=== PATIENT | female | born 1945 | race Hispanic/Latino ===

== ENCOUNTER 2019-05-07 06:30 | Day surgery (SDC) | payer OTHER ==
[2019-05-03 14:52] LABS: Absolute Lymphocytes (CBC) 1.8 K/uL (0.7-4.9); Basophils % 0.7 % (0-1.3); Hematocrit 29.8 % (36.0-45.0); Lymphocytes % 30.7 % (15.3-44.8); MPV 10.3 fL (7.6-11.3); RBC Red Blood Cell Count 4.07 M/uL (3.86-4.86)
[2019-05-03 14:55] LABS: Protime INR 0.99
[2019-05-03 15:00] LABS: Potassium 4.2 mmol/L (3.5-5.1)
--- NOTE | 2019-05-03 15:49 | RAD REPORT ---
EXAM DESCRIPTION: RAD - Chest Pa And Lat (2 Views) - 05/03/2019 3:12 pm CLINICAL HISTORY: carotid angiogram, preop examination COMPARISON: Portable November 20, 2009, two view chest July 2008 TECHNIQUE: Frontal and lateral views of the chest were obtained. FINDINGS: The lungs are clear of a focal mass or consolidation. Diffusely prominent interstitial pat tern is present increased over the prior study. In the absence of acute clinical symptoms this is mos t likely progressive fibrosis. Interstitial edema or infiltrate could be masked. Heart size is normal and central vasculature is within normal limits. No pleural effusion or pneumot horax seen. No acute bony finding noted. No aortic abnormality. IMPRESSION: Diffusely prominent interstitial pattern progressive from prior imaging. In the absence of any acute clinical finding this is most likely progressive fibrosis.
--- OUTSIDE RECORDS SUMMARY | 2019-05-07 06:36 | XMS REPORT | Summary of Care ---
:1945 Author Organization [facility] Address [address] [place] [address] Care Team Providers Name Role Phone Pcp, Patient Does Not Have A Primary Care Provider Reason for Visit Reason Comments Results Encounter Details Date Type Department Care Team Description 04/18/2019 Telephone Pending sale to [facility] Mayra Clark MD Results Clinic [address] [facility] [address] [place] [address] [place], [place] [address] Allergies Active Allergy Reactions Severity Noted Date Comments Cephalexin Rash 01/30/2015 Morphine Nausea and/or Vomiting 06/21/2016 Penicillins Rash 01/30/2015 documented as of this encounter (statuses as of 04/19/2019) Medications Medication Sig Dispensed Refills Start Date End Date Status levothyroxine Take 50 mcg by 0 Active (SYNTHROID) 50 mcg mouth every tablet morning. ASPIRIN LOW DOSE ORAL Take by mouth. 0 Active documented as of this encounter (statuses as of 04/19/2019) Active Problems Problem Noted Date Elbow pain 06/21/2016 Knee pain 06/21/2016 documented as of this encounter (statuses as of 04/19/2019) Social History Tobacco Use Types Packs/Day Years Used Date Never Smoker Smokeless Tobacco: Never Used Alcohol Use Drinks/Week oz/Week Comments Not Asked 0 Standard drinks or equivalent 0.0 Sex Assigned at Date Recorded Not on file Job Start Date Occupation Industry Not on file Not on file Not on file Travel History Travel Start Travel End No recent travel history available. documented as of this encounter Last Filed Vital Signs Not on filedocumented in this encounter Plan of Treatment Health Maintenance Due Date Last Done Comments DTaP,Tdap,and Td Vaccines (1 - Tdap) 07/28/1954 Breast Cancer Screening (MAMMOGRAM) 1983 COLONOSCOPY 07/28/1993 Zoster Recombinant Vaccine (SHINGRIX) (1 of 2) 07/28/1993 Medicare Wellness Visit 07/28/2008 Osteoporosis Screening 07/28/2008 PNEUMOCOCCAL VACCINES 65+ (1 of 2 - PCV13) 07/28/2008 INFLUENZA VACCINE (#1) 2018 documented as of this encounter Results Not on filedocumented in this encounter Insurance Payer Benefit Plan Subscriber ID Effective Phone Address Type / Group Dates MEDICARE MEDICARE PART xxxxxxxxxxx 2008-Prese [phone] Medicare A & B nt [address] [id number] [place] [id number] FOR [id number] 2015-Pre Medicare LIFE sent Supplement documented as of this encounter
--- OUTSIDE RECORDS SUMMARY | 2019-05-07 06:36 | XMS REPORT ---
:1945 Author Organization [facility] Address [address] [place] [address] Dr. Carter. [address] [place] [address] Care Team Providers Name Role Phone Unavailable Unavailable Unavailable Payers Payer Name Policy Type Policy Number Effective Date Expiration Date Problems This patient has no known problems. Allergies, Adverse Reactions, Alerts Allergy Name Allergy Status Severity Reaction(s) Onset Inactive Treating Comments Type Date Date Clinician Penicillins DA Active U 2017-09 00:00:0 0 cephalexin DA Active U 2017-09 00:00:0 0 Medications This patient has no known medications.
--- OUTSIDE RECORDS SUMMARY | 2019-05-07 06:37 | XMS REPORT | Summary of Care ---
:1945 Author Organization [facility] Address [address] [place] [address] Care Team Providers Name Role Phone Pcp, Patient Does Not Have A Primary Care Provider Reason for Referral (Routine) Status Reason Specialty Diagnoses / Referred By Referred To Procedures Contact Contact New Request Sleep Disorder Diagnoses Obstructive sleep apnea Amber, Diagnostic Procedures SLEEP STUDY, ATTENDED Mayra Hawkins MD [address] [place] [address] Dr Carter [address] [place] [address] Reason for Visit Reason Comments Obstructive Sleep Apnea Encounter Details Date Type Department Care Team Description 04/23/2019 Telephone [facility] Mayra Mleendez, Obstructive Sleep Pulmonary Clinic Apnea [address] [place] [address] , [address] [place] [address] Dr Friedman [address] [place] [phone] Allergies Active Allergy Reactions Severity Noted Date Comments Cephalexin Rash 01/30/2015 Morphine Nausea and/or Vomiting 06/21/2016 Penicillins Rash 01/30/2015 documented as of this encounter (statuses as of 04/23/2019) Medications Medication Sig Dispensed Refills Start Date End Date Status levothyroxine Take 50 mcg by 0 Active (SYNTHROID) 50 mcg mouth every tablet morning. ASPIRIN LOW DOSE ORAL Take by mouth. 0 Active documented as of this encounter (statuses as of 04/23/2019) Active Problems Problem Noted Date Elbow pain 06/21/2016 Knee pain 06/21/2016 documented as of this encounter (statuses as of 04/23/2019) Social History Tobacco Use Types Packs/Day Years [...] filedocumented in this encounter Plan of Treatment Name Type Priority Associated Diagnoses Order Schedule SLEEP STUDY, ATTENDED PROCEDURES Routine Obstructive sleep apnea Ordered: 04/23/2019 Health Maintenance Due Date Last Done Comments DTaP,Tdap,and Td Vaccines (1 - Tdap) 07/28/1954 Breast Cancer Screening (MAMMOGRAM) 1983 COLONOSCOPY 07/28/1993 Zoster Recombinant Vaccine (SHINGRIX) (1 of 2) 07/28/1993 Medicare Wellness Visit 07/28/2008 Osteoporosis Screening 07/28/2008 PNEUMOCOCCAL VACCINES 65+ (1 of 2 - PCV13) 07/28/2008 INFLUENZA VACCINE (#1) 2018 documented as of this encounter Results Not on filedocumented in this encounter Visit Diagnoses Diagnosis Obstructive sleep apnea - Primary Obstructive sleep apnea (adult) (pediatric) documented in this encounter Insurance Payer Benefit Plan Subscriber ID Effective Phone Address Type / Group Dates MEDICARE MEDICARE PART xxxxxxxxxxx 2008-Jaz [phone] [address] Medicare A & B nt 82 [id number] [place] [id number] FOR [id number] 2015-Pre Medicare LIFE sent Supplement documented as of this encounter
--- OUTSIDE RECORDS SUMMARY | 2019-05-07 06:37 | XMS REPORT | Summary of Care ---
:1945 Author Organization [facility] Address [address] [place] [address] Care Team Providers Name Role Phone Pcp, Patient Does Not Have A Primary Care Provider Reason for Visit Reason Comments APNEA (Routine) Status Reason Specialty Diagnoses / Referred By Referred To Procedures Contact Contact Closed Sleep Disorder Diagnoses Obstructive sleep apnea Mayra Clark Diagnostic Procedures SLEEP STUDY, ATTENDED MD Ross [address] [place] [address] Dr Carter [address] [place] [address] Encounter Details Date Type Department Care Team Description 05/03/2019 Associate Civil Engineer [address] [facility] Sleep Mayra Clark MD [address] [place] [address] Dr Carter [address] [place] [address] Apnea Disorder Center- , [facility] Sleep Lab Bed [address] [place] [phone] Allergies Active Allergy Reactions Severity Noted Date Comments Cephalexin Rash 01/30/2015 Morphine Nausea and/or Vomiting 06/21/2016 Penicillins Rash 01/30/2015 documented as of this encounter (statuses as of 05/03/2019) Medications Medication Sig Dispensed Refills Start Date End Date Status levothyroxine Take 50 mcg by 0 Active (SYNTHROID) 50 mcg mouth every tablet morning. ASPIRIN LOW DOSE ORAL Take by mouth. 0 Active documented as of this encounter (statuses as of 05/03/2019) Active Problems Problem Noted Date Elbow pain 06/21/2016 Knee pain 06/21/2016 documented as of this encounter (statuses as of 05/03/2019) Social History Tobacco Use Types Packs/Day Years [...] filedocumented in this encounter Visit Diagnoses Diagnosis Apnea documented in this encounter Insurance Payer Benefit Plan Subscriber ID Effective Phone Address Type / Group Dates MEDICARE MEDICARE PART xxxxxxxxxxx 2008-Prese [phone] Medicare A & B nt 82 [id number] [place] [phone] FOR [id number] 2015-Pre Medicare LIFE sent Supplement documented as of this encounter
--- OUTSIDE RECORDS SUMMARY | 2019-05-07 06:37 | XMS REPORT | Summary of Care ---
:1945 Author Organization [facility] Address [address] [place] [address] Care Team Providers Name Role Phone Pcp, Patient Does Not Have A Primary Care Provider Reason for Visit Reason Comments Results Encounter Details Date Type Department Care Team Description 04/18/2019 Telephone [facility] Pulmonary Mayra Clark MD Results Clinic [address] [facility] [address] [place] [address] [place], [place] [address] Allergies Active Allergy Reactions Severity Noted Date [...] BOX Medicare A & B nt 82 [id number] [place] [phone] FOR [id number] 2015-Pre Medicare LIFE sent Supplement documented as of this encounter
--- OUTSIDE RECORDS SUMMARY | 2019-05-07 06:37 | XMS REPORT | Summary of Care ---
:1945 Author Organization [facility] Address [address] [place] [address] Care Team Providers Name Role Phone Pcp, Patient Does Not Have A Primary Care Provider Encounter Details Date Type Department Care Team Description 05/03/2019 Orders Only [facility] Doctor Unassigned, No [address] [facility] [place] [address] [address] [place] [address] Allergies Active Allergy Reactions Severity Noted Date Comments Cephalexin Rash 01/30/2015 Morphine Nausea and/or Vomiting 06/21/2016 Penicillins Rash 01/30/2015 documented as of this encounter (statuses as of 05/06/2019) Medications Medication Sig Dispensed Refills Start Date End Date Status levothyroxine Take 50 mcg by 0 Active (SYNTHROID) 50 mcg mouth every tablet morning. ASPIRIN LOW DOSE ORAL Take by mouth. 0 Active documented as of this encounter (statuses as of 05/06/2019) Active Problems Problem Noted Date Elbow pain 06/21/2016 Knee pain 06/21/2016 documented as of this encounter (statuses as of 05/06/2019) Social History Tobacco Use Types Packs/Day Years [...] (#1) 2018 documented as of this encounter Procedures Procedure Name Priority Date/Time Associated Diagnosis Comments SLEEP STUDY DATA REPORT Routine 05/03/2019 12:01 AM CDT documented in this encounter Results Not on filedocumented in this encounter Insurance Payer Benefit Plan Subscriber ID Effective Phone Address Type / Group Dates MEDICARE MEDICARE PART xxxxxxxxxxx 2008-Prese [phone] [address] Medicare A & B nt 82 [id number] [place] [phone] FOR [id number] 2015-Pre Medicare LIFE sent Supplement documented as of this encounter
[2019-05-07] MEDS ORDERED: HEPA 1000U/500MLS 1,000 UNIT/500 ML BAG IV ONE (06:41)
[2019-05-07] MEDS ORDERED: LIDOCAINE 1% 20 ML MDV ONE (06:41)
[2019-05-07] MEDS ORDERED: NA CHLORIDE 0.9% 500 ML ONE (06:56)
[2019-05-07] MEDS ORDERED: MIDAZOLAM HCL 2 MG/2 ML INJ ONE ×2 (07:29→07:44)
[2019-05-07] MEDS ORDERED: FENTANYL CITR 100 MCG/2 ML ONE (07:30)
[2019-05-07] MEDS ORDERED: ATROPINE SULF 1 MG/10 ML SYR IV ONE (07:30)
[2019-05-07 10:54] VITALS: BP 136/57; O2SAT 100
[2019-05-07 11:00] VITALS: TEMP 97.6
--- NOTE | 2019-05-07 13:54 | OP ---
Date of Procedure: 05/07/2019 Surgeon: Terrence Epps MD Fiscal Accounting Clerk: Jonathon Judd. The patient will be at bed rest for about 2 hours and then go home and she will see me in the office in about 2 weeks. Procedure: Selective bilateral carotid angiogram. History Of Present Illness: Ms. Beaver is a 73-year-old white woman. She has been followed by Dr. Umberto sequeira for carotid stenosis. This seemed to have gotten worse. She was asked to have an arterial carot id Doppler which was significantly abnormal and was scheduled for an outpatient carotid angiogram tod ay 05/07/2019. Description Of Procedure: She was brought to the tin can laborer and prepped and draped in the routine ster ile fashion. She was given Versed and fentanyl for sedation. Right common femoral artery access obt ained with a 6-Hebrew sheath. Angiography there was normal. Angio-Seal was used to close the case. A Uriel catheter, JR4, was used to selectively cannulate the right carotid, common, and the left c ommon carotid artery. Selective injection of the carotid angiogram revealed normal external carotid artery bilaterally, normal common carotid artery bilaterally. She had about 20% to 30% stenosis in t he right internal carotid artery. She had the same stenosis about 30% in the left internal carotid a rtery. Complications were none. Anesthesia: Total conscious sedation was 30 minutes. Estimated Blood Loss: 5 cc. Final Diagnosis: Moderate cerebrovascular disease. Plan: To continue medical therapy. Probably do another carotid Doppler in about a year. DILLON/JENNIFER Voice ID: [id number] Report ID: [id number]
== END 2019-05-07 09:51 | disposition home or self-care (01) ==
LOC: CCL 06:30
DX: I65.23 Occlusion and stenosis of bilateral carotid arteries (principal); E78.2 Mixed hyperlipidemia; Z79.82 Long term (current) use of aspirin; Z88.0 Allergy status to penicillin; Z88.1 Allergy status to other antibiotic agents; Z88.6 Allergy status to analgesic agent
CPT/HCPCS: 85025; 80048; 36415; 85610; 85730; 71046; 36222; C1893; C1760; J2250 ×2; J3010; J7040

== ENCOUNTER 2021-09-08 06:30 | Day surgery (SDC) | payer OTHER ==
--- NOTE | 2021-09-07 14:20 | RAD REPORT ---
EXAM DESCRIPTION: RAD - Chest Pa And Lat (2 Views) - 09/07/2021 2:01 pm CLINICAL HISTORY: pre procedure screening COMPARISON: Two view chest 03/26/2021 TECHNIQUE: Frontal and lateral views of the chest were obtained. FINDINGS: The lungs are fibrotic as a baseline. No superimposed failure, infiltrate or mass hilar re gions are stable. Heart size is normal and central vasculature is within normal limits. No pleural effusion or pneumothorax seen. No acute bony finding noted. No aortic abnormality. IMPRESSION: Chronic interstitial fibrotic change matching the March study. No acute finding.
[2021-09-07 14:22] LABS: Hematocrit 34.9 % (36.0-45.0); Lymphocytes % 26.7 % (15.3-44.8); MCV 85.2 fL (80-100); MPV 9.8 fL (7.6-11.3); RBC Red Blood Cell Count 4.09 M/uL (3.86-4.86)
[2021-09-07 14:23] LABS: Protime INR 2.68
[2021-09-07 14:34] LABS: Potassium 4.1 mmol/L (3.5-5.1)
[2021-09-07 14:38] LABS: SARS-CoV-2 Antigen Rapid Res Negative (Negative)
[2021-09-08] MEDS ORDERED: FENTANYL CITR 100 MCG/2 ML ONE (06:45)
[2021-09-08] MEDS ORDERED: MIDAZOLAM HCL 10 ML ONE (06:46)
[2021-09-08] MEDS ORDERED: METOPROLOL TARTRATE 5 MG/5 ML INJ IV ONE (06:46)
[2021-09-08] MEDS ORDERED: MIDAZOLAM HCL 2 MG/2 ML INJ ONE (06:46)
[2021-09-08] MEDS ORDERED: ATROPINE SULF 1 MG/10 ML SYR IV ONE (06:47)
[2021-09-08] MEDS ORDERED: NA CHLORIDE 0.9% 500 ML ONE (06:48)
[2021-09-08 08:52] VITALS: BP 104/53; O2SAT 100
--- NOTE | 2021-09-08 08:57 | OP ---
Surgeon: Terrence Epps MD Analytical Tech: Ms. Amanda Luz. The patient will resume her amiodarone and Xarelto and if she was back into atrial fibrillation, we w ill consider ablation then. Ms. Beaver was admitted to my service today, 09/08/2021 for direct current cardioversion. Indication: Atrial fibrillation that had failed amiodarone. The patient had been on anticoagulant. Echocardiogram was unremarkable. Was having symptoms with her atrial fibrillation. Procedure In Detail: In the medical laboratory manager, she received 7 mg of IV push of Versed for total sedation, 1 s hock of 200 joules, and she converted to sinus bradycardia. There were no complications. No blood l oss. Postoperative Diagnosis: Successful direct current cardioversion from atrial fibrillation to sinus b radycardia. We will continue amiodarone and Xarelto. She can go home whenever she wakes up. I will see her in t he office in 2 weeks. DILLON/JENNIFER Voice ID: [id number] Report ID: [id number]
--- NOTE | 2021-09-09 13:06 | EKG ---
Test Date: 2021-09-08 Test Time: 07:24:39 Barbering Instructor: PAMELA MEASUREMENT RESULTS: Intervals: Rate: 71 CA: 172 QRSD: 76 QT: 402 QTc: 436 [place]: P: 62 CA: 172 QRS: 60 T: 60 INTERPRETIVE STATEMENTS: Normal sinus rhythm Normal ECG Compared to ECG 12/23/2009 13:33:06 Sinus bradycardia no longer present Electronically Signed On 09-09-21 13:05:09 CDT by Geoffrey Franklin
== END 2021-09-08 08:40 | disposition home or self-care (01) ==
LOC: CCL 06:30
DX: I48.0 Paroxysmal atrial fibrillation (principal); I65.23 Occlusion and stenosis of bilateral carotid arteries; E78.2 Mixed hyperlipidemia; I27.21 Secondary pulmonary arterial hypertension; E03.9 Hypothyroidism, unspecified; Z79.01 Long term (current) use of anticoagulants; Z79.82 Long term (current) use of aspirin; Z79.899 Other long term (current) drug therapy; Z20.822 Contact with and (suspected) exposure to COVID-19
CPT/HCPCS: 36415; 71046; 80048; 85025; 85610; 85730; 87811; 92960; 93005; J2250; J3010; J7040

== ENCOUNTER 2022-07-27 13:31 | Observation (INO) | payer OTHER ==
--- OUTSIDE RECORDS SUMMARY | 2022-07-27 13:58 | XMS REPORT | Continuity of Care Document ---
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 TAKE DAILY. TAKE MOUTH AFTER AFTER TWICE FINISHING FINISHING DAILY. KETOROLAC/T KETOROLAC/T TAKE AFTER ORADOL ORADOL FINISHING KETOROLAC/ TORADOL doxycycline doxycycline No doxycyclin Radha hyclate 100 hyclate 100 e hyclate Orthope mg capsule mg capsule 100 mg d ic TAKE 1 TAKE 1 capsule Sports CAPSULE BY CAPSULE BY TAKE 1 M edicin MOUTH TWICE MOUTH TWICE CAPSULE BY e DAILY DAILY MOUTH TWICE DAILY Vital Signs Vital Name Observation Time Observation Value Comments Source Height 2022-04-12 00:00:00 59 [in_i] Radha [facility] rthopedic Sports Medicine BMI (Body Mass 2022-04-12 00:00:00 28.1 kg/m2 Rad[facility] Orthopedic Index) Sports Medicine Body Weight 2022-04-12 00:00:00 139 [lb_av] Radha [facility]thopedic Sports Medicine Systolic blood 2022-01-22 15:07:00 135 mm[Hg] [facility] blood 2022-01-22 15:07:00 65 mm[Hg] [facility] Heart rate 2022-01-22 15:07:00 87 /min [facility] Body temperature 2022-01-22 15:07:00 37 Mallory [facility] Respiratory rate 2022-01-22 15:07:00 16 /min [facility] Body weight 2022-01-22 15:07:00 61.236 kg [facility] BMI 2022-01-22 15:07:00 27.27 kg/m2 [facility] Oxygen saturation in 2022-01-22 15:07:00 100 /min University of Arterial blood by [facility] Pulse oximetry Branch Systolic blood 2021-10-19 16:47:00 109 mm[Hg] Univer sity of pressure [facility] Diastolic blood 2021-10-19 16:47:00 74 mm[Hg] Unive rsity of pressure [facility] Heart rate 2021-10-19 16:47:00 106 /min [facility] Body temperature 2021-10-19 16:47:00 36.11 Mallory Univ ers[facility] Respiratory rate 2021-10-19 16:47:00 16 /min Univ [facility] Oxygen saturation in 2021-10-19 16:47:00 99 /min University of Arterial blood by [facility] Pulse oximetry Branch Body height 2021-10-17 00:17:00 149.9 cm [facility] Body weight 2021-10-17 00:17:00 65.772 kg [facility] BMI 2021-10-17 00:17:00 29.29 kg/m2 [facility] Systolic blood 2021-10-16 10:00:00 108 mm[Hg] Univer sity of pressure [facility] Diastolic blood 2021-10-16 10:00:00 56 mm[Hg] Unive rsity of pressure [facility] Heart rate 2021-10-16 10:00:00 58 /min [facility] Body temperature 2021-10-16 10:00:00 36.67 Mallory [facility] Respiratory rate 2021-10-16 10:00:00 13 /min Univ [facility] Oxygen saturation in 2021-10-16 10:00:00 99 /min University of Arterial blood by [facility] Pulse oximetry Branch Body height 2021-10-16 04:40:21 149.9 cm [facility] Body weight 2021-10-16 04:40:21 65.772 kg [facility] BMI 2021-10-16 04:40:21 29.29 kg/m2 [facility] Systolic blood 2021-08-05 13:41:00 149 mm[Hg] Univer sity of pressure [facility] Diastolic blood 2021-08-05 13:41:00 69 mm[Hg] Unive rsity of pressure [facility] Heart rate 2021-08-05 13:29:00 84 /min [facility] Respiratory rate 2021-08-05 13:29:00 19 /min [facility] Body height 2021-08-05 13:29:00 152.4 cm [facility] Body weight 2021-08-05 13:29:00 66.86 kg [facility] BMI 2021-08-05 13:29:00 28.79 kg/m2 [facility] Oxygen saturation in 2021-08-05 13:29:00 96 /min [facility] Arterial blood by [facility] Pulse oximetry Branch Height 2021 00:00:00 62 [in_i] Radha Aquino rthopedic Sports Medicine BMI (Body Mass 2021 00:00:00 26.5 kg/m2 Radha Orthopedic Index) Sports Medicine Body Weight 2021 00:00:00 145 [lb_av] Radha Aquino rthopedic Sports Medicine Procedures Procedure Date / Time Performing Clinician Source Performed CT CHEST WO CONTRAST 2022-07-20 15:41[facility] or 2 view 2022-04-12 00:00:[address] CHEST WO CONTRAST 2022-03-22 17:48:41 Karen dupont [facility] XR CHEST 2 VW 2022-01-22 15:32:48 [place] [facility] o f [facility] AUTHORIZATION FOR RELEASE 2021-11-08 05:01:00 Doctor Unassigned, [facility] OF [facility] [place] [facility] BASIC METABOLIC PANEL (NA, 2021-10-19 11:22:00 Amaya Spears [facility] K, CL, CO2, GLUCOSE, BUN, Medica l Branch CREATININE, CA) CBC WITH DIFF 2021-10-19 11:22:00 Amaya Spears [facility] HEMOGLOBIN 2021-10-19 04:00:00 Concha Mujica [facility] EXTRA TUBE LT. GREEN 2021-10-19 04:00:00 Josias Santillan [facility] BASIC METABOLIC PANEL (NA, 2021-10-18 10:13:00 Amaya Spears [facility] K, CL, CO2, GLUCOSE, BUN, Medica l Branch CREATININE, CA) CBC WITH DIFF 2021-10-18 10:13:00 Concha Mujica [facility] PHOSPHORUS 2021-10-17 21:08:00 Amaya Spears [facility] MAGNESIUM 2021-10-17 21:08:00 Regan Amayanirmala Rodriguez [facility] TROPONIN I 2021-10-17 21:08:00 Regan [facility] Jennifer [facility] BASIC METABOLIC PANEL (NA, 2021-10-17 21:08:00 Amaya Spears [facility] K, CL, CO2, GLUCOSE, BUN, Medica l Branch CREATININE, CA) N-TERMINAL PRO-BNP 2021-10-17 21:08:00 Amaya Spears [facility] CBC WITH DIFF 2021-10-17 21:03:00 Amaya Spears [facility] MAGNESIUM 2021-10-17 09:50:00 Juan Jose Fang Howe o f [facility] BASIC METABOLIC PANEL (NA, 2021-10-17 09:50:00 Shy Mujica [facility] K, CL, CO2, GLUCOSE, BUN, Medica l Branch CREATININE, CA) CBC WITH DIFF 2021-10-17 09:50:00 Concha Mujica [facility] PREPARE PACKED RBC 2021-10-17 05:40:31 Keshav Ewing [facility] HB ABO GROUPING 2021-10-17 04:09:00 Keshav Ewing [facility] PROTHROMBIN TIME / INR 2021-10-17 01:32:00 Alisha Bloom [facility] ACTIVATED PARTIAL THRMPLAS 2021-10-17 01:32:00 Keshav garcia [facility] FIBRINOGEN 2021-10-17 01:32:00 Keshav Ewing [facility] HEMOGLOBIN 2021-10-17 00:20:00 Rodrigo Mujicassica [facility] COVID-19 (ID NOW RAPID 2021-10-16 17:39:00 Concha Mujica [facility] TESTING) Medical Branch LAB ONLY COVID 2021-10-16 17:39:00 Sil [facility] INTERPRETATION [facility] TROPONIN I 2021-10-16 12:50:00 Sil, [facility] BASIC METABOLIC PANEL (NA, 2021-10-16 12:50:00 Rubio [facility] K, CL, CO2, GLUCOSE, BUN, Medica l Branch CREATININE, CA) HEMOGLOBIN 2021-10-16 12:50:00 Sil [facility] CBC WITHOUT DIFF 2021-10-16 12:50:00 Rubio [facility] PROTHROMBIN TIME / INR 2021-10-16 12:50:00 Rubio [facility] ABORH CONFIRMATION (LAB 2021-10-16 07:30:00 Aki Rubin [facility] ONLY) Medical Branch HB ABO GROUPING 2021-10-16 06:54:00 Aki Rubin [facility] PROTHROMBIN TIME / INR 2021-10-16 06:52:00 Aki Rubin [facility] COVID-19 (ID NOW RAPID 2021-10-16 06:52:00 Aki Rubin [facility] TESTING) Medical Branch CT TRAUMA ABDOMEN PELVIS W 2021-10-16 05:40:35 Aki Rubin [facility] CONTRAST [facility] CT TRAUMA HEAD WO CONTRAST 2021-10-16 05:40:02 Aki Rubin [facility] CT TRAUMA CERVICAL SPINE 2021-10-16 05:40:02 [facility] CT TRAUMA THORACIC SPINE 2021-10-16 05:40:02 [facility] Branch CT TRAUMA LUMBAR SPINE WO 2021-10-16 05:40:02 [facility]ki [facility] XR KNEE <3 VW BILATERAL 2021-10-16 05:39:39 [facility] 2021-10-16 05:02:00 Aki Rubin [facility] COMP. METABOLIC PANEL 2021-10-16 05:02:00 Aki Rubin [facility] ([id number]) Medical [place] CBC WITH DIFF 2021-10-16 05:02:00 Aki Rubin [facility] AUTHORIZATION TO RELEASE 2021-08-05 05:01:00 Doctor Unassigned, [facility] PHI TO [facility] [place] [facility] XR, knee, 1 or 2 view 2021 00:00:00 Radha [facility] Sports Medicine Total Replacement of Right 2020-09-08 00:00:00 Jose bryson Orthopedic Knee Joint Sports Medicine [id number] 2020-09-08 00:00:00 [facility] [id number] 2020-09-08 00:00:00 [facility] [id number] 2020-09-08 00:00:00 [facility] [id number] 2020-09-08 00:00:00 [facility] Back Surgery Radha Orthopedi c Sports Medicine Carpal Tunnel Surgery Radha Ort hopec Sports Medicine Eye Surgery Radha Orthopedi c Sports Medicine Foot Surgery Radha Orthopedi c Sports Medicine Gallbladder Surgery Radha Ortho pedic Sports Medicine Hernia Repair Radha Orthopedi c Sports Medicine Knee Replacement Radha Orthoped ic Sports Medicine Unlisted Procedure Spine [facility]ha Orthopedic Sports Medicine Gastric Bypass Radha Orthopedi c Sports Medicine Cholecystectomy Radha Orthopedi c Sports Medicine Hysterectomy Radha Orthopedi c Sports Medicine Appendectomy Radha Orthopedi c Sports Medicine Tonsillectomy Radha Orthopedi kendrick Sports Medicine Hand Surgery Radha Orthopedi kendrick Sports Medicine Plan of Care Planned Activity Planned Date Details Comments Source Future Scheduled 2022-07-27 COVID-19 VACCINE (#1) [facility] Test 10:39:56 [code = COVID-19 VACCINE (#1)] Future Scheduled 2022-07-27 65+ [facility]CCAL [facility] Test 10:39:56 VACCINE (1 - PCV) [code = 65+ PNEUMOCOCCAL VACCINE (1 - PCV)] Future Scheduled 2022-07-27 Hepatitis C screening [facility] Test 10:39:56 (procedure) [code = 881818443] Future Scheduled 2022-07-27 SHINGLES VACCINES (1 Met [facility] Test 10:39:56 of 2) [code = SHINGLES VACCINES (1 of 2)] Future Scheduled 2022-07-27 INFLUENZA VACC[address] Method [facility] Test 10:39:56 [code = INFLUENZA VACCINE] Encounters Start End Encounter Admission Attending Care Care Encounter Source Date/Time Date/Time Type Type Clinicians Facility Department ID 2022-07-20 2022-07-20 Outpatient KAREN PRICE [facility] [id number] [place] 00:00:00 00:00:[address] 2022-07-18 2022-07-18 [facility] Karen Price 1.2.840.1 [id number] Methodi 00:00:00 00:00:00 Orders Jaclyn [id number] 3.430.2.7 Hospit a .3.674799 l .8 2022-05-11 2022-05-11 Outpatient R MAYRA CLARK [facility] [id number] Univers 10:00:00 10:00:00 MAYRA CLARK [facility] 2022-05-11 2022-05-11 Outpatient R MAYRA CLARK [facility] [id number] Univers 10:00:00 10:00:00 MAYRA CLARK [facility] 2022-04-12 2022-04-12 Outpatient FOG_Burke_R AOSM AOSM [id number] Radha 00:00:00 00:00:00 Mike [id number] Ortho pe dic Sports Medicin e 2022-04-12 2022-04-12 Adair Robledo [facility] - Ortho [id number] Radha 00:00:00 00:00:00 MD Kvng: Danita Mcfarland - Orthope [address] FOG_Ofc dic [place], [place] [address], [place] [address] , Ph. [phone] 2022-04-06 2022-04-06 Outpatient FOG_Burke_R AOSM AOSM [id number] Radha 00:00:00 00:00:00 Mike [id number] Ortho pe dic Sports Medicin e 2022-03-22 2022-03-22 Outpatient KAREN PRICE [facility] [id number] [place] 00:00:00 00:00:[address] 2022-03-10 2022-03-10 Transcribe Karen Price 1.2.840.1 [id number] Methodi 00:00:00 00:00:00 Orders Jaclyn [id number] 3.430.2.7 Hospit a .3.941790 l .8 2022-02-07 2022-02-07 Outpatient R RANDY INTERIANO [facility] [id number] Univers 10:00:00 10:00:00 RANDY INTERIANO i [facility] 2022-01-22 2022-01-22 Outpatient R IZABELLA [facility] [id number] Univers 09:17:49 23:59:00 [facility] 2022-01-22 2022-01-22 [facility] 1.2.840.114 [id number] Univers 09:17:49 23:59:[address] [id number] [facility] [id number] Malik as JIMI?BLEA [phone] Ri hugh OSWALD [address] [place] MEDICAL OFFICE BUILDING 2022-01-22 2022-01-22 Urgent Du Parekh [facility] 1.2.840.11 [id number] Univers 09:00:00 09:20:00 Care Unknown, Attending HEALTH [id number] ity of [place] [id number] Malik as JIMI?BLEA [phone] Ri dical [address] MEDICAL OFFICE BUILDING 2021-11-25 2021-11-25 Outpatient FOG_Burke_R AOSM AOSM [id number] Radha 00:00:00 00:00:00 obNimesh [id number] Ortho pe dic Sports Medicin e 2021-11-25 2021-11-25 Outpatient FOG_Burke_R AOSM AOSM [id number] Radha 00:00:00 00:00:00 obNimesh [id number] Ortho pe dic Sports Medicin e 2021-11-25 2021-11-25 Outpatient FOG_Burke_R AOSM AOSM [id number] Radha 00:00:00 00:00:00 obNimesh [id number] Ortho pe dic Sports Medicin e 2021-11-08 2021-11-08 Orders Doctor SHANTI 1.2.840.114 [id number] Univers 00:00:00 00:00:00 Only Unassigned, LAMAR [id number] ity of [place] [facility] [id number] Malik as [phone] [facility] 009 Branch 2021-10-26 2021-10-26 Outpatient R ILIA [facility] [id number] Univers 08:00:00 23:59:00 ARSEN almaguer [facility] 2021-10-20 2021-10-20 Transition BECKIE Virk 1.2.840.114 [id number] Univers 00:00:00 00:00:00 of Care Francisco Javier ADRIAN [id number] it[place] of [place]2.[place] [phone] [facility] 403 Branch 2021-10-16 2021-10-19 Inpatient T GENO, [facility] STR [id number] Univers 07:19:00 17:15:00 JOSIAS almaguer [facility] 2021-10-16 2021-10-19 [facility] Jonh Bates JAYLEEN 1.2.[id number] [facility] 07:19:00 17:15:00 Encounter Josias Santillan [id number] ity of [facility] [id number] [facility] [id number] [facility] [address] [place] 2021-10-15 2021-10-16 Emergency X RUDDY [facility] ERT [id number] Univers 23:09:00 06:13:00 AKI almaguer [facility] 2021-10-15 2021-10-16 Emergency Ernestine Lizama [facility] 1.2.[id number] [facility] [address] [facility] 23:09:00 06:13:00 Aki Rubin 350.1.13.10 [facility] 4.2.7.2.686 [facility] [id number] [facility] [address] [place] 2021-08-17 2021-08-17 Outpatient FOG_Burke_R AOSM AOSM 612 Radha 10:07:00 10:07:00 Mike [id number] Ortho pe dic Sports Medicin e 2021-08-17 2021-08-17 Outpatient LEANDRO Holder [id number] 00:00:00 00:00:00 Lacie H [id number] 2021-08-17 2021-08-17 Lacie H [place]OSM [place] - Ortho Radha 00:00:00 00:00:00 Danita Holder - Or ezio PA: [id number] FOG_Ofc dic [facility] [employer] [place], Medici [address], [place] [address] , Ph. [phone] 2021-08-05 2021-08-05 Outpatient FOG_Burke_R AOSM AOSM 612 Radha 10:27:00 10:27:00 Mike [id number] Ortho pe dic Sports Medicin e 2021-08-05 2021-08-05 Outpatient FOG_Burke_R AOSM AOSM 612 Radha 10:27:00 10:27:00 Mike [id number] Ortho pe dic Sports Medicin e 2021-08-05 2021-08-05 Outpatient FOG_Burke_R AOSM AOSM [id number] Radha 10:27:00 10:27:00 Mike [id number] Ortho pe dic Sports Medicin e 2021-08-05 2021-08-05 Office Berto [facility] 1.2.840.114 [id number] Univers 08:30:00 09:00:00 Visit Randy HARP 350.1.13.10 i ty [facility] [id number] [phone] Ri dical [address] 2021-08-05 2021-08-05 Outpatient R RANDY INTERIANO [facility] [id number] Univers 08:30:00 08:30:00 RANDY INTERIANO i ty [facility] 2021-08-05 2021-08-05 Outpatient R OMEGA INTERIANOTXAngelica [facility] [id number] Univers 08:30:00 08:30:00 RANDY INTERIANO i ty [facility] 2021-08-05 2021-08-05 Orders Doctor MOSER 1.2.840.114 [id number] Univers 00:00:00 00:00:00 Only Unassigned, LAMAR [id number] ity of [place] [facility] [id number] Malik as [phone] [address] 2021-08-03 2021-08-03 Outpatient MICHAEL MoralesJORY marieCALI HCATO [id number] [facility] 07:26:00 07:26:00 Adair [id number] [facility] 2021-08-03 2021-08-03 Outpatient KOURTNEY Mendez [id number] [facility] 07:26:00 07:26:00 Adair Lobo [facility] 2021 2021 Outpatient FOG_Burke_R AOSM AOSM [id number] Radha 03:10:00 03:10:00 Mike [id number] Ortho pe dic Sports Medicin e 2021 2021 Outpatient LEANDRO Calderon AOSM [id number] 00:00:00 00:00:00 Adair Robledo [id number] 2021 2021 Adair Robledo [place] - Ortho 16 Radha 00:00:00 00:00:00 MD Kvng: Danita Mcfarland - Orthopfrank [address] FOG_Ofc dic [place], [employer] [address], [place] [address] , Ph. 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 10 itjose mcdonald [place] 4.2.7.2.686 [facility] [phone] [place] [address] Branch 2021-05-06 2021-05-06 Outpatient Son STORY [facility] [id number] Univers 08:00:00 08:00:00 PREET hart [facility] 2021-05-06 2021-05-06 Orders Jez [facility] 1.2.840.114 [id number] Univers 00:00:00 00:00:00 Only Preet KOCH 350.1.13.10 ity of [place]7.2.[place] CENTER [phone] [facility] AND JONES [address] [place] [facility] 2021-05-05 2021-05-05 Office Amber MIJON 1.2.715.756 [id number] Univers 13:40:00 14:00:00 Visit Strahil T [place] 350.1.13.[address] [facility] 4.2.7.2.[place] [phone] Ri sebastian[address] 2021-05-05 2021-05-05 Outpatient R MAYRA CLARK [facility] [id number] Univers 13:40:00 13:40:00 MAYRA CLARK [facility] 2021-05-05 2021-05-05 Outpatient R MAYRA CLARK [facility] [id number] Univers 13:40:00 13:40:00 MAYRA CLARK itjose [facility] 2021-04-27 2021-04-27 Telephone Amber [facility] 1.2.840.114 [id number] Univers 00:00:00 00:00:00 Strahil T [place] 350.1.13.10 ity of [id number] [phone] [address] 2021-04-16 2021-04-16 Orders Doctor SHANTI 1.2.840.114 [id number] Univers 00:00:00 00:00:00 Only Unassigned, LAMAR 350.1.13.10 ity of [place] [facility] 4.2.7.2.686 Malik as [phone] [place] [address] Branch 2020-12-02 2020-12-02 [facility] 1.2.509.595 [id number] Univers 13:42:38 14:02:38 Visit Strahil T [place] 350.1.13.10 ity of [place] 4.2.7.2.[place] Profess[place] [phone] [address] 2020-12-02 2020-12-02 Outpatient R MAYRA CLARK [facility] [id number] Univers 14:00:00 14:00:00 MAYRA CLARK ity [facility] 2020-10-14 2020-10-14 Outpatient R GAURANG [facility] [id number] Univers 09:20:00 09:20:00 MARJORIE ity [facility] 2020-10-14 2020-10-14 Ancillary Lyndsay Huston [facility] 1.2.840. 114 [id number] Univers 08:39:26 09:19:26 Visit Marjorie Merlos 350.1.13.10 ity of [place].7.2.[place] [phone] Ri dical nal [address] [facility] 2020-10-14 2020-10-14 Orders Doctor SHANTI 1.2.840.114 [id number] Univers 00:00:00 00:00:00 Only Unassigned, LAMAR 350.1.13.10 ity of [place] [facility] 4.2.7.2.686 Malik as [phone] [address] 2020-10-08 2020-10-08 Ancillary Lyndsay Huston [facility] 1.2.840. 114 [id number] Univers 08:27:34 09:07:34 Visit Marjorie Merlos 350.1.13.10 [place] of [place].2.[place] [phone] Ri dical nal [address] [facility] 2020-10-06 2020-10-06 Ancillary Adonay Diann Armida [facility] 1.2.[id number] [facility] 08:35:04 09:15:04 Visit Marjorie Merlos 350.1.13.10 ity of [place].2.[place] [phone] Ri dical nal [address] [facility] 2020-10-01 2020-10-01 Ancillary Lyndsay Huston [facility] 1.2.840. 114 [id number] Univers 13:42:33 14:24:00 Visit Marjorie Merlos 350.1.13.10 ity of [place].7.2.[place] [phone] Ri dical nal [address] [facility] 2020-09-29 2020-09-29 Ancillary Lynsey Nieto [place] 1 .2.840.114 [id number] Univers 14:47:06 15:53:39 Visit Marjorie Merlos 350.1.13.10 ity of [place].7.2.[place] [phone] Ri dical nal [address] [facility] 2020-09-24 2020-09-24 Ancillary Jacqueline Caldwell [facility] 1.2. 840.114 [id number] Univers 13:35:01 14:15:01 Visit Marjorie Merlos 350.1.13.10 ity of [place] 4.[place].2.[place] [phone] Ri dical nal [address] [facility] 2020-09-22 2020-09-22 Ancillary Jacqueline Caldwell [facility] [id number] [facility] 12:58:51 13:38:51 Visit Marjorie Merlos 350.1.13.10 ity of [place].7.2.[place] [phone] Ri dical nal [address] [facility] 2020-09-17 2020-09-17 Ancillary Natanael Lynsey Finch [facility] 1 .2.840.114 [id number] Univers 13:53:17 15:40:34 Visit Marjorie Merlos 350.1.13.10 ity of [place].7.2.[place] [phone] Ri dical nal [address] [facility] 2020-09-17 2020-09-17 Outpatient R GAURANG [facility] [id number] Univers 14:00:00 14:00:00 MARJORIE almaguer [facility] 2020-09-11 2020-09-11 Outpatient Son MERLOS [facility] [id number] Univers 13:40:00 13:40:00 MARJORIE almaguer [facility] 2020-09-112020-09-11 Orders Doctor MOSER 1.2.840.[id number] [facility] 00:00:00 00:00:00 Only Unassigned, LAMAR 350.1.13.[address] [facility] 4.2.7.2.686 Malik as [phone] [address] 2020-09-08 2020-09-09 Inpatient JORY MendezTO ADMI [id number] [facility] 06:43:00 14:22:00 Adair [facility] 2020-09-02 2020-09-02 Outpatient JORY MendezTO 3DAY [id number] [facility] [facility] 09:00:00 23:00:00 Adair [facility] 2020-09-02 2020-09-02 Outpatient JORY CalderonCL LABO [id number] [facility] 18:22:00 18:22:00 Adair 35 [facility] 2019-11-27 2019-11-27 [facility] [id number] 14:31:49 15:01:49 [facility] [place] 350.1.13.10 [place] 4.2.7.2.686 Professio [phone] [address] 2019-11-27 2019-11-27 Office Amber [facility] [id number] [facility] 14:31:49 15:01:49 Visit Strahil T [place] 350.1.13.10 ity [facility] [place] [phone] [facility] [address] 2019-11-27 2019-11-27 Outpatient R MAYRA CLARK [facility] [id number] [facility] 14:30:00 14:30:00 MAYRA CLARK ity of [facility] 2019-11-01 2019-11-01 Outpatient JORY CalderonTO SURG [id number] [facility] 10:45:00 10:45:00 Adair [facility] 2019-10-30 2019-10-30 Orders Doctor SHANTI Grewal.2.840.[id number] [place] [address] 00:00:00 00:00:00 Only Unassigned, LAMAR 350.1.13.10 ity of [place] [facility] 4.2.7.2.686 Malik as [phone] [address] 2019-10-25 2019-10-25 Outpatient RHIANNON Calderon LABO [id number] [facility] 18:10:00 18:10:00 Adair 08 [facility] 2019-10-25 2019-10-25 Outpatient JORY CalderonTO SURG [id number] [facility] 14:00:00 14:00:00 Adair 34 [facility] 2019-09-25 2019-09-25 Outpatient R ATAPITER, STRAHIL [facility] [id number] Univers 14:00:00 14:00:00 TARUN CLARKL itjose [facility] 2019-09-25 2019-09-25 Telemedici [facility] [id number] [facility] 07:51:27 08:21:27 ne [facility] [place] 350.1.13.10 it[place] [phone] Ri dical nal [address] [place] [address] 2019-09-25 2019-09-25 Orders Doctor SHANTI 1.2.840.114 [id number] Univers 00:00:00 00:00:00 Only Unassigned, LAMAR 350.1.13.10 ity of [place] [facility] 4.2.7.2.686 Malik as [phone] [address] 2019-09-09 2019-09-09 Telephone [facility] 1.2.840.114 [id number] Univers 00:00:00 00:00:00 Strahil T [place] 350.1.13.10 ity [place] [phone] Ri dical nal [address] [place] [address] 2019-05-03 2019-05-03 Outpatient R AMBER STRAHIL [facility] [id number] Univers 20:00:00 20:00:00 DAPHNIE CLARKHIL itjose [facility] 2019-05-03 2019-05-03 [employer] 1, Adc Sleep Lab Bed [facility] 1. 2.840.114 [id number] Univers 14:13:36 16:43:36 Visit Mayra Clark [place] 350.1.13. 10 ity of [place].2.[place] [phone] [facility] [address] 2019-05-03 2019-05-03 Orders Doctor SHANTI 1.2.840.114 [id number] Univers 00:00:00 00:00:00 Only Unassigned, LAMAR 350.1.13.10 ity of [place] [facility] 4.2.7.2.686 Malik as [phone] [facility] [address] 2019-05-02 2019-05-02 Outpatient R MAYRA CLARK [facility] [id number] Univers 20:00:00 20:00:00 TARUN CLARKL ity of [facility] 2019-04-23 2019-04-23 Telephone [facility] 1.2.840.114 [id number] Univers 00:00:00 00:00:00 Tarunl Ross [place] 350.1.13.10 ity of [place] [phone] [address] 2019-04-18 2019-04-18 Telephone [facility] 1.2.840.114 [id number] Univers 00:00:00 00:00:00 Tarunl T [place] 350.1.13.10 ity of [place] 4[place] [phone] [address] Results Test Description Test Time Test Comments Results Result Comments Source CBC with Differential 2021-10-18 11:18:01 Test Item Value Reference Range Interpretation Comme nts WBC (test code = 6690-2) See_Comment [A utomated message] The system which ge nerated this result transmit shanique reference range: 4.30 - 1 1.10 10*3/?L. The reference r nacho was not used to interpr et this result as normal/abnor mal. RBC (test code = 789-8) See_Comment L [Au tomated message] The system which ge nerated this result transmit shanique reference range: 3.93 - 5 .25 10*6/?L. The reference r nacho was not used to interpr et this result as normal/abnor mal. HGB (test code = 718-7) 8.3 g/dL 11.6-15 L HCT (test code = 4544-3) 25.6 % 35.7-45.2 L MCV (test code = 787-2) 84.2 fL 80.6-95.5 MCH (test code = 785-6) 27.3 pg 25.9-32.8 MCHC (test code = 786-4) 32.4 g/dL 31.6-35.1 RDW-SD (test code = 84379-2) 44.0 fL 39-49.9 RDW-CV (test code = 788-0) 14.5 % 12-15.5 PLT (test code = 777-3) See_Comment L [Au tomated message] The system which cielo24 nerated this result transmit shanique reference range: 166 - 35 8 10*3/?L. The reference range was not used to interpret th is result as normal/abnormal . MPV (test code = 92524-0) 13.5 fL 9.5-12.9 H IPF % (test code = 14.6 % 1.3-7.7 H Platelet count measured by [id number]) fluorescence me thod. NRBC/100 WBC (test code = See_Comment [ Automated message] The 7771827582) system which cielo24 nerated this result transmit shanique reference range: 0.0 - 10 .0 /100 WBCs. The reference r nacho was not used to interpr et this result as normal/abnor mal. NRBC x10^3 (test code = See_Comment [Au tomated message] The 6699246990) system which cielo24 nerated this result transmit shanique reference range: 10*3/?L. The reference range was not u sed to interpret this result as normal/abnormal . GRAN MAT (NEUT) % (test code 66.7 % = 770-8) IMM GRAN % (test code = 0.30 % 5738556406) LYMPH % (test code = 736-9) 20.8 % MONO % (test code = 5905-5) 8.8 % EOS % (test code = 713-8) 2.6 % BASO % (test code = 706-2) 0.8 % GRAN MAT x10^3(ANC) (test 4.10 10*3/uL 1.88-7.09 code = 6234279681) IMM GRAN x10^3 (test code = 0-0.06 5819855403) LYMPH x10^3 (test code = 1.28 10*3/uL 1.32-3.29 L 731-0) MONO x10^3 (test code = 0.54 10*3/uL 0.33-0.92 742-7) EOS x10^3 (test code = 0.16 10*3/uL 0.03-0.39 711-2) BASO x10^3 (test code = 0.05 10*3/uL 0.01-0.07 704-7) GIANT PLATELETS (test code = Present See_Comment A [Automated message] The [employer] system which ge nerated this result transmit shanique reference range: (none). The reference range was not u sed to interpret this result as normal/abnormal . Lab Interpretation (test Abnormal code = 14481-1) [facility] METABOLIC PANEL (NA, K, CL, CO2, GLUCOSE, BUN, CREATININE, CA)2021-10-18 11:04:21 Test Item Value Reference Range Interpretation Comments NA (test code = 135 mmol/L 135-145 4354851463) K (test code = 4.3 mmol/L 3.5-5 3162836452) CL (test code = 105 mmol/L 98-108 5979264913) CO2 TOTAL (test code = 32 mmol/L 23-31 H 6559901663) AGAP (test code = 2-16 L 7520722417) BUN (test code = 18 mg/dL 7-23 6970349681) GLUCOSE (test code = 94 mg/dL 70-110 9839697367) CREATININE (test code = 0.60 mg/dL 0.5-1.04 1260799722) CALCIUM (test code = 7.7 mg/dL 8.6-10.6 L 3321443903) eGFR (test code = mL/min/1.73m2 4232569881) OWEN (test code = OWEN) Association of Glomerular Filtration Rate (GFR) and Staging of Kidney Disease* + --+ --+ ------+| GFR (mL/min/1.73 m2) ?| With Kidney Damage ?| ?Without Kidney Damage+ --------+ --------+ +| ?>90 ?| ?Stage one ?| ? Normal ?+ ---+ ---+ -------+| ?60-89 ?| ?Stage two ?| ? Decreased GFR ? + --+ --+ ------+| ?30-59 ?| ?Stage three ?| ? Stage three ? + --+ --+ ------+| ?15-29 ?| ?Stage four ? | ? Stage four ?+ ---+ ---+ -------+| ?<15 (or dialysis) ? ?| ?Stage five ? | ? Stage five ?+ ---+ ---+ -------+ *Each stage assumes the associated GFR level has been in effect for at least three months. ?Stages 1 to 5, with or without kidney disease, indicate chronic kidney disease. Notes: Determination of stages one and two (with eGFR >59mL/min/1.73 m2) requires estimation of kidney damage for at least three months as defined by structural or functional abnormalities of the kidney, manifested by either:Pathological abnormalities or Markers of kidney damage (including abnormalities in the composition of the blood or urine or abnormalities in imaging tests). Lab Interpretation Abnormal (test code = 65827-0) [facility] 22:01:16 Test Item Value Reference Range Interpretation Comments MAGNESIUM (test code = 6081264056) 2.3 mg/dL 1.7-2.4 Lab Interpretation (test code = Normal 73080-5) [facility] with [id number] 14:47:35 Test Item Value Reference Range Interpretation Comments WBC (test code = See_Comment [Automated 6166-2) message] The sy stem which generated this result transmitted reference range : 4.30 - 11.10 10*3/?L. The reference range was not used to interpret this result as normal/abnormal . RBC (test code = See_Comment L [Automated 979-8) message] The sy stem which generated this result transmitted reference range : 3.93 - 5.25 10*6/?L. The reference range was not used to interpret this result as normal/abnormal . HGB (test code = 8.5 g/dL 11.6-15 L 718-7) HCT (test code = 26.0 % 35.7-45.2 L 4544-3) MCV (test code = 85.2 fL 80.6-95.5 787-2) MCH (test code = 27.9 pg 25.9-32.8 785-6) MCHC (test code = 32.7 g/dL 31.6-35.1 786-4) RDW-SD (test code = 45.3 fL 39-49.9 13049-2) RDW-CV (test code = 14.7 % 12-15.5 788-0) PLT (test code = See_Comment L [Automated 777-3) message] The sy stem which generated this result transmitted reference range : 166 - 358 10*3/ ?L. The reference r nacho was not used to interpret this result as normal/abnormal . MPV (test code = 13.4 fL 9.5-12.9 H 07154-5) IPF % (test code = 14.5 % 1.3-7.7 H Platelet count 9144984237) measured by fluorescence method. NRBC/100 WBC (test See_Comment [Automat ed code = 6978999754) message] The system which generated this result transmitted reference range : 0.0 - 10.0 /100 WBCs. The refer ence range was not u sed to interpret th is result as normal/abnormal . NRBC x10^3 (test code See_Comment [Auto mated = 4745684223) message] The s ystem which generated this result transmitted reference range : 10*3/?L. The reference range was not used to interpret this result as normal/abnormal . GRAN MAT (NEUT) % 66.5 % (test code = 770-8) IMM GRAN % (test code 0.40 % = 9699990501) LYMPH % (test code = 21.8 % 736-9) MONO % (test code = 9.3 % 5905-5) EOS % (test code = 1.5 % 713-8) BASO % (test code = 0.5 % 706-2) GRAN MAT x10^3(ANC) 3.64 10*3/uL 1.88-7.09 (test code = 5544229584) IMM GRAN x10^3 (test 0-0.06 code = 0441305391) LYMPH x10^3 (test code 1.19 10*3/uL 1.32-3.29 L = 731-0) MONO x10^3 (test code 0.51 10*3/uL 0.33-0.92 = 742-7) EOS x10^3 (test code = 0.08 10*3/uL 0.03-0.39 711-2) BASO x10^3 (test code 0.03 10*3/uL 0.01-0.07 = 704-7) Lab Interpretation Abnormal (test code = 08022-0) [facility] Metabolic Panel (NA, K, CL, CO2, Glucose, BUN, Creatinine, CA)2021-10-17 11:40:34 Test Item Value Reference Range Interpretation Comments NA (test code = 136 mmol/L 135-145 9289007100) K (test code = 4.0 mmol/L 3.5-5 7030449120) CL (test code = 106 mmol/L 98-108 1525352984) CO2 TOTAL (test code = 34 mmol/L 23-31 H 8637782478) AGAP (test code = 2-16 L 7409666272) BUN (test code = 19 mg/dL 7-23 3382468137) GLUCOSE (test code = 101 mg/dL 70-110 2206293858) CREATININE (test code = 0.66 mg/dL 0.5-1.04 3059945096) CALCIUM (test code = 7.9 mg/dL 8.6-10.6 L 5048723067) eGFR (test code = mL/min/1.73m2 8574006798) OWEN (test code = OWEN) Association of Glomerular Filtration Rate (GFR) and Staging of Kidney Disease* + --+ --+ ------+| GFR (mL/min/1.73 m2) ?| With Kidney Damage ?| ?Without Kidney Damage+ --------+ --------+ +| ?>90 ?| ?Stage one ?| ? Normal ?+ ---+ ---+ -------+| ?60-89 ?| ?Stage two ?| ? Decreased GFR ? + --+ --+ ------+| ?30-59 ?| ?Stage three ?| ? Stage three ? + --+ --+ ------+| ?15-29 ?| ?Stage four ? | ? Stage four ?+ ---+ ---+ -------+| ?<15 (or dialysis) ? ?| ?Stage five ? | ? Stage five ?+ ---+ ---+ -------+ *Each stage assumes the associated GFR level has been in effect for at least three months. ?Stages 1 to 5, with or without kidney disease, indicate chronic kidney disease. Notes: Determination of stages one and two (with eGFR >59mL/min/1.73 m2) requires estimation of kidney damage for at least three months as defined by structural or functional abnormalities of the kidney, manifested by either:Pathological abnormalities or Markers of kidney damage (including abnormalities in the composition of the blood or urine or abnormalities in imaging tests). Lab Interpretation Abnormal (test code = 96537-5) [facility] Packed RBC (in units), 1 Units 2021-10-17 05:40:31 Test Item Value Reference Range Interpretation Comments Cross Match Result Compatible (test code = 4409) ISBT Blood Type Code (test code = 460229) Unit Blood Type (test O Neg code = 4410) Unit Number (test [id number] code = 4411) Blood Expiration Date & Time (test code = 703416) Status Information Issued (test code = 4412) Product Red Blood Cells Identification (test code = 4413) Product Code (test D5961E25 Performed at [facility] code = 4414) Laboratory Services - [facility] Blood Cgbs[address] [facility] s [address]Gxzq Free: [phone] A No. [id number] [facility] SouthType and Screen - ONCE [id number] 04:56:08 Test Item Value Reference Range Interpretation Comments ABO & RH (test code O POSITIVE Performe d at [facility] = 20) Laboratory Serv ices - [facility] Blood Bank3 [address] [facility] s [address]Awgp Free: [phone] A No. [id number] IAT (test code = Negative Performed a t [facility] 1185) Laboratory Serv [facility] Blood Bank[address] [place] [address] [facility] [address]Ihmq Free: [phone] A No. [id number] [facility] SouthProthrombin Time / [id number] 01:54:54 Test Item Value Reference Range Interpretation Comments PROTIME PATIENT (test See_Comment H [Auto mated message] code = 5964-2) The system ich generated this result transmitted ref erence range: 10.1 - 1 2.6 Seconds. The reference range was not used to int erpret this result as normal/abnormal . INR (test code = 6301-6) Nor mal INR <1.1; Warfarin Therap eutic range 2.0 to 3. 0 or 2.5 to 3.5, dep ending upon the indica tions. Lab Interpretation (test Abnormal code = 07717-8) [facility] SouthACTIVATED PARTIAL THRMPLAS [id number] 01:54:54 Test Item Value Reference Range Interpretation Comments APTT Patient (test code = See_Comment [ Automated message] 3173-2) The system 1jiajieic h generated this result transmitted ref erence range: 26 - 36 Seconds. The re ference range was not u sed to interpret this result as normal/abnor mal. Lab Interpretation (test Normal code = 66027-9) [facility] South[facility]IB[facility]INOGEN2022-09-04 01:54:54 Test Item Value Reference Range Interpretation Comments Fibrinogen (test code = 3257281304) 306 mg/dL 167-453 Lab Interpretation (test code = Normal 48876-2) [facility]HEMOGLOBIN2022-09-04 00:56:11 Test Item Value Reference Range Interpretation Comments HGB (test code = 718-7) 6.8 g/dL 11.6-15 L Lab Interpretation (test code = Abnormal 45801-9) [facility] SouthTROPONIN [id number] 20:13:33 Test Item Value Reference Interpretation Comments Range TROPONIN I (test 0.009 ng/mL See_Comment [Automated code = 6172148776) message] The system which generated this result transmitted reference range : <=0.034. The reference range was not used to interpret this result as normal/abnormal . OWEN (test code = Reference (Normal) OWEN) Range (defined by the 99th percentile reference limit): <= 0.034 ng/mL Note: Cardiac troponin begins to rise 3-4 hours after the onset of ischemia. Repeat in 4-6 hours if the sample was drawn within 3-4 hours of the onset of the symptom and found normal. Diagnosis of myocardial injury is made with acute changes in cTn concentrations with at least one serial sample above the 99th percentile upper reference limit (URL), taken together with the patient's clinical presentation. Biotin has been reported to cause a negative bias, interpret results relative to patient's use of biotin. Lab Interpretation Normal (test code = 12299-8) [facility] (NA, K, CL, CO2, GLUCOSE, BUN, CREATININE, CA)2021-10-16 13:28:31 Test Item Value Reference Range Interpretation Comments NA (test code = 135 mmol/L 135-145 9005859725) K (test code = 4.1 mmol/L 3.5-5 1977461273) CL (test code = 106 mmol/L 98-108 2578676384) CO2 TOTAL (test code = 28 mmol/L 23-31 1162963186) AGAP (test code = 2-16 L 0007552153) BUN (test code = 23 mg/dL 7-23 5552435266) GLUCOSE (test code = 152 mg/dL 70-110 H 5144885728) CREATININE (test code = 0.65 mg/dL 0.5-1.04 6412989314) CALCIUM (test code = 7.9 mg/dL 8.6-10.6 L 7066600297) eGFR (test code = mL/min/1.73m2 5071292055) OWEN (test code = OWEN) Association of Glomerular Filtration Rate (GFR) and Staging of Kidney Disease* + --+ --+ ------+| GFR (mL/min/1.73 m2) ?| With Kidney Damage ?| ?Without Kidney Damage+ --------+ --------+ +| ?>90 ?| ?Stage one ?| ? Normal ?+ ---+ ---+ -------+| ?60-89 ?| ?Stage two ?| ? Decreased GFR ? + --+ --+ ------+| ?30-59 ?| ?Stage three ?| ? Stage three ? + --+ --+ ------+| ?15-29 ?| ?Stage four ? | ? Stage four ?+ ---+ ---+ -------+| ?<15 (or dialysis) ? ?| ?Stage five ? | ? Stage five ?+ ---+ ---+ -------+ *Each stage assumes the associated GFR level has been in effect for at least three months. ?Stages 1 to 5, with or without kidney disease, indicate chronic kidney disease. Notes: Determination of stages one and two (with eGFR >59mL/min/1.73 m2) requires estimation of kidney damage for at least three months as defined by structural or functional abnormalities of the kidney, manifested by either:Pathological abnormalities or Markers of kidney damage (including abnormalities in the composition of the blood or urine or abnormalities in imaging tests). Lab Interpretation Abnormal (test code = 30424-5) [facility]HE[facility]IN2022-09-03 13:09:07 Test Item Value Reference Range Interpretation Comments HGB (test code = 718-7) 7.4 g/dL 11.6-15 L Lab Interpretation (test code = Abnormal 12096-4) [facility] SouthCB WITHOUT [id number] 13:08:47 Test Item Value Reference Range Interpretation Comments WBC (test code = 6690-2) See_Comment [A utomated message] The system [employer] generated this result transmit shanique reference range : 4.30 - 11.10 10*3/?L. The reference range was not used to interpret this result as normal/abnormal . RBC (test code = 789-8) See_Comment L [Au tomated message] The system [employer] generated this result transmit shanique reference range : 3.93 - 5.25 10* 6/?L. The reference r nacho was not used to interpret this result as normal/abnormal . HGB (test code = 718-7) 7.5 g/dL 11.6-15 L HCT (test code = 4544-3) 23.8 % 35.7-45.2 L MCH (test code = 785-6) 26.8 pg 25.9-32.8 MCV (test code = 787-2) 85.0 fL 80.6-95.5 MCHC (test code = 786-4) 31.5 g/dL 31.6-35.1 L PLT (test code = 777-3) See_Comment L [Au tomated message] The system [employer] generated this result transmit shanique reference range : 166 - 358 10*3/?L. The reference range was not used to interpret this result as normal/abnormal . MPV (test code = 12.6 fL 9.5-12.9 49549-5) RDW-CV (test code = 14.9 % 12-15.5 788-0) RDW-SD (test code = 46.0 fL 39-49.9 12790-3) NRBC x10^3 (test code = See_Comment [Au tomated message] 5423517714) The system [employer] generated this result transmit shanique reference range : 10*3/?L. The reference range was not used to interpret this result as normal/abnormal . NRBC/100 WBC (test code See_Comment [Au tomated message] = 6480791979) The system [facility] generated this result transmit shanique reference range : 0.0 - 10.0 /100 WBC s. The reference r nacho was not used to interpret this result as normal/abnormal . IPF % (test code = 8212527486) Lab Interpretation (test Abnormal code = 67212-7) [facility] SouthProthrombin Time / [id number] 13:08:12 Test Item Value Reference Range Interpretation Comments PROTIME PATIENT (test See_Comment H [Auto mated message] code = 5964-2) The system [facility] generated this result transmitted ref erence range: 10.1 - 1 2.6 Seconds. The reference range was not used to int erpret this result as normal/abnormal . INR (test code = 6301-6) Nor mal INR <1.1; Warfarin Therap eutic range 2.0 to 3. 0 or 2.5 to 3.5, dep ending upon the indica tions. Lab Interpretation (test Abnormal code = 81220-2) [facility] SouthProthrombin Time / [id number] 07:44:46 Test Item Value Reference Range Interpretation Comments PROTIME PATIENT (test See_Comment [Auto mated message] code = 5964-2) The system wh ich generated this result transmitted ref erence range: 12.0 - 1 4.7 Seconds. The re ference range was not u sed to interpret this result as normal/abnor mal. INR (test code = 6301-6) Nor mal INR <1.1; Warfarin Therap eutic range 2.0 to 3. 0 or 2.5 to 3.5, dep ending upon the indica tions. Lab Interpretation (test Normal code = 82356-5) [facility] SouthABORH Confirmation (Lab Only)2021-10-16 07:44:28 Test Item Value Reference Range Interpretation Comments ABO & RH (test code O Positive Performe d at [facility] = 20) Laboratory [facility] Blood Bank[address] [place] [address] Free: [phone] A No. [id number] [facility] SouthType and Screen - ONCE [id number] 07:32:31 Test Item Value Reference Range Interpretation Comments ABO & RH (test code O Positive Performe d at [facility] = 20) Laboratory [facility] Blood [address] [place], [place] [address]Toll Free: [phone] A No. [id number] IAT (test code = Negative Performed a t [facility] 1185) Laboratory [facility] Blood [address] [place] [address] Free: [phone] A No. [id number] [facility] SouthCBC WITH [id number] 05:38:59 Test Item Value Reference Range Interpretation Comments WBC (test code = See_Comment [Automated 6590-2) message] The sy stem which generated this result transmitted reference range : 4.30 - 11.10 10*3/?L. The reference range was not used to interpret this result as normal/abnormal . RBC (test code = See_Comment L [Automated 969-8) message] The sy stem which generated this result transmitted reference range : 3.93 - 5.25 10*6/?L. The reference range was not used to interpret this result as normal/abnormal . HGB (test code = 9.6 g/dL 11.6-15 L 718-7) HCT (test code = 30.5 % 35.7-45.2 L 4544-3) MCV (test code = 84.0 fL 80.6-95.5 787-2) MCH (test code = 26.4 pg 25.9-32.8 785-6) MCHC (test code = 31.5 g/dL 31.6-35.1 L 786-4) RDW-SD (test code = 45.2 fL 39-49.9 55414-9) RDW-CV (test code = 14.7 % 12-15.5 788-0) PLT (test code = See_Comment [Automated 777-3) message] The sy stem which generated this result transmitted reference range : 166 - 358 10*3/ ?L. The reference r nacho was not used to interpret this result as normal/abnormal . MPV (test code = 13.2 fL 9.5-12.9 H 62091-0) NRBC/100 WBC (test See_Comment [Automat ed code = 5916427861) message] The system which generated this result transmitted reference range : 0.0 - 10.0 /100 WBCs. The refer ence range was not u sed to interpret th is result as normal/abnormal . NRBC x10^3 (test code See_Comment [Auto mated = 7630275310) message] The s ystem which generated this result transmitted reference range : 10*3/?L. The reference range was not used to interpret this result as normal/abnormal . GRAN MAT (NEUT) % 73.2 % (test code = 770-8) IMM GRAN % (test code 0.70 % = 0563993747) LYMPH % (test code = 19.9 % 736-9) MONO % (test code = 5.3 % 5905-5) EOS % (test code = 0.6 % 713-8) BASO % (test code = 0.3 % 706-2) GRAN MAT x10^3(ANC) 7.19 10*3/uL 1.88-7.09 H (test code = 5149942435) IMM GRAN x10^3 (test 0.07 10*3/uL 0-0.06 H code = 3863660895) LYMPH x10^3 (test code 1.95 10*3/uL 1.32-3.29 = 731-0) MONO x10^3 (test code 0.52 10*3/uL 0.33-0.92 = 742-7) EOS x10^3 (test code = 0.06 10*3/uL 0.03-0.39 711-2) BASO x10^3 (test code 0.03 10*3/uL 0.01-0.07 = 704-7) Lab Interpretation Abnormal (test code = 92987-2) [facility]. METABOLIC PANEL (67346)2021-10-16 05:34:32 Test Item Value Reference Range Interpretation Comments NA (test code = 137 mmol/L 135-145 0051140182) K (test code = 3.7 mmol/L 3.5-5 3379227604) CL (test code = 103 mmol/L 98-108 7184380674) CO2 TOTAL (test code = 27 mmol/L 23-31 2637215144) AGAP (test code = 2-16 0089943943) BUN (test code = 23 mg/dL 7-23 6882297806) GLUCOSE (test code = 127 mg/dL 70-110 H 7148561754) CREATININE (test code = 0.93 mg/dL 0.5-1.04 0071473956) TOTAL BILI (test code = 0.4 mg/dL 0.1-1.5 8779128466) CALCIUM (test code = 8.4 mg/dL 8.6-10.6 L 8754735792) T PROTEIN (test code = 6.4 g/dL 6.3-8.2 0039562215) ALBUMIN (test code = 4.0 g/dL 3.5-5 6496946947) ALK PHOS (test code = 95 U/L 34-122 7764688441) ALTv (test code = 22 U/L 5-35 1742-6) AST(SGOT) (test code = 39 U/L 13-40 5296723909) eGFR (test code = mL/min/1.73m2 0293409167) OWEN (test code = OWEN) Association of Glomerular Filtration Rate (GFR) and Staging of Kidney Disease* + --+ --+ ------+| GFR (mL/min/1.73 m2) ?| With Kidney Damage ?| ?Without Kidney Damage+ --------+ --------+ +| ?>90 ?| ?Stage one ?| ? Normal ?+ ---+ ---+ -------+| ?60-89 ?| ?Stage two ?| ? Decreased GFR ? + --+ --+ ------+| ?30-59 ?| ?Stage three ?| ? Stage three ? + --+ --+ ------+| ?15-29 ?| ?Stage four ? | ? Stage four ?+ ---+ ---+ -------+| ?<15 (or dialysis) ? ?| ?Stage five ? | ? Stage five ?+ ---+ ---+ -------+ *Each stage assumes the associated GFR level has been in effect for at least three months. ?Stages 1 to 5, with or without kidney disease, indicate chronic kidney disease. Notes: Determination of stages one and two (with eGFR >59mL/min/1.73 m2) requires estimation of kidney damage for at least three months as defined by structural or functional abnormalities of the kidney, manifested by either:Pathological abnormalities or Markers of kidney damage (including abnormalities in the composition of the blood or urine or abnormalities in imaging tests). Lab Interpretation Abnormal (test code = 47425-1) [facility]12 Test Item Value Reference Range Interpretation Comments LIPASE (test code = 9251219399) 136 U/L 0-220 Lab Interpretation (test code = Normal 83181-6) [facility] MET[facility]OLIC [id number] 06:57:00 Test Item Value Reference Range Interpretation Comments SODIUM (test code = 140 mmol/L 136-145 N NA) POTASSIUM (test code = 4.9 mmol/L 3.5-5.1 N K) CHLORIDE (test code = 104.0 mmol/L 98-107 N CL) CARBON DIOXIDE (test 31.9 mmol/L 21-32 N code = CO2) GLUCOSE (test code = 102 mg/dL 70-110 N GLU) BLOOD UREA NITROGEN 20 mg/dL 7-18 H (test code = BUN) GLOMERULAR FILTRATION 85.3 >60 Unit o f measure: RATE (test code = GFR) mL/mi n/1.73 a9Tncxbjray Range:Healthy Adults >90 mL/min/1.73 m2 For Chronic Kidney Disease: Stage II Mild Decrease i n GFR 60-90 Stage III Moderate Decrea se in GFR 30-59 St age IV Severe Decre ase in GFR 15-29 St age V Kidney Failur e <15 CREATININE (test code 0.67 mg/dL 0.55-1.30 N = CREAT) CALCIUM (test code = 8.1 mg/dL 8.2-10.1 L CA) HGB [id number] 06:34:00 Test Item Value Reference Range Interpretation Comments HEMOGLOBIN (test code = HGB) 9.3 g/dL 12-16 L HEMATOCRIT (test code = HCT) 29.5 % 37-47 L SPECIMEN COMMENT: POD #1- XR KNEE 1 OR 2 V [id number] 20:29:00 [facility] : 1945 Sex: F Patient Name: OZIEL BEAVER Unit No: [id number] EXAMS: CPT CODE: [id number] XR KNEE 1 OR 2 V RT 53792 IMAGES PROVIDED: 2 FINDINGS: Postoperative changes from right total knee arthoplasty demonstrated without evidence of immediate complication. No acute fracture is visualized. IMPRESSION: Postoperative exam as above. at 2028 Reported and signed by: Howard Ritter M.D. CC: Adair Calderon MD; Ehsan Mccoy MD Technologist: DUYEN RODRIGUEZ(RT.R) Transcribed D/ (2028) AnaySLJ [facility] NAME: OZIEL BEAVER [address] [facility] PHYS: Adair Helton MD : 1945 AGE: 75 SEX: F [place], [place] [address] LOC: Y.315 A PHONE #: [phone] EXAM DATE: 09/08/2020 STATUS: ADM IN FAX #: [phone] RAD #: D/C DT PAGE 1 Signed Report Patient Name: OZIEL BEAVER Unit No: [id number] EXAMS: CPT CODE: [id number] XR KNEE 1 OR 2 V RT 92091 (Continued) Orig Print D/T: S: 09/08/2020 (2031) [facility] NAME: OZIEL BEAVER [address] [facility] PHYS: Adair Helton MD : 1945 AGE: 75 SEX: F [place] [address] LOC: Y.315 A PHONE #: [phone] EXAMDATE: 09/08/2020 STATUS: ADM IN FAX #: [phone] RAD #: D/C DT PAGE 2 Signed ReportCOMPREHENSIVE METABOLIC PANEL 2020-09-02 18:20:00 Test Item Value Reference Range Interpretation Comments SODIUM (test code = 141 mmol/L 136-145 N NA) POTASSIUM (test code = 4.7 mmol/L 3.5-5.1 N K) CHLORIDE (test code = 103.0 mmol/L 98-107 N CL) CARBON DIOXIDE (test 29.6 mmol/L 21-32 N code = CO2) GLUCOSE (test code = 89 mg/dL 70-110 N GLU) BLOOD UREA NITROGEN 20 mg/dL 7-18 H (test code = BUN) GLOMERULAR FILTRATION 77.3 >60 Unit o f measure: RATE (test code = GFR) mL/mi n/1.73 g2Gowbaieaj Range:Healthy Adults >90 mL/min/1.73 m2 For Chronic Kidney Disease: Stage II Mild Decrease i n GFR 60-90 Stage III Moderate Decrea se in GFR 30-59 St age IV Severe Decre ase in GFR 15-29 St age V Kidney Failur e <15 CREATININE (test code 0.73 mg/dL 0.55-1.30 N = CREAT) TOTAL PROTEIN (test 7.2 g/dL 6.4-8.2 N code = PROT) ALBUMIN (test code = 3.7 g/dL 3.4-5.0 N ALB) GLOBULIN (test code = 3.5 g/dL 2.2-4.2 N GLOB) ALBUMIN/GLOBULIN RATIO 1.1 0.7-2.0 N (test code = A/G) CALCIUM (test code = 8.9 mg/dL 8.2-10.1 N CA) BILIRUBIN TOTAL (test 0.30 mg/dL 0.2-1.00 N code = BILT) SGOT/AST (test code = 19.0 U/L 15-37 N AST) SGPT/ALT (test code = 20.0 U/L 12-78 N Please note new ALT) normal range. ALKALINE PHOSPHATASE 95 U/L 46-116 N TOTAL (test code = ALKP) CBC W/AUTO [id number] 17:50:00 Test Item Value Reference Range Interpretation Comments WHITE BLOOD CELL (test code = WBC) 6.2 K/mm3 5.8-11.0 N RED BLOOD CELL (test code = RBC) 4.20 M/mm3 4.2-5.4 N HEMOGLOBIN (test code = HGB) 11.7 g/dL 12-16 L HEMATOCRIT (test code = HCT) 36.6 % 37-47 L MEAN CELL VOLUME (test code = MCV) 87 fL 80-98 N MEAN CELL HGB (test code = MCH) 27.9 pg 27-34 N MEAN CELL HGB CONCENTRATION (test 32.0 g/dL 30.8-34.1 N code = MCHC) RED CELL DISTRIBUTION WIDTH (test 15.9 % 11-16 N code = RDW) PLT (test code = PLT) 148 K/mm3 130-400 N MEAN PLATELET VOLUME (test code = 13.9 fL 8.9-12.1 H MPV) NEUTROPHIL % (test code = NT%) 66.4 % 45-70 N LYMPHOCYTE % (test code = LY%) 24.9 % 20-40 N MONOCYTE % (test code = MO%) 6.9 % 3-10 N EOSINOPHIL % (test code = EO%) 0.8 % 1-5 L BASOPHIL % (test code = BA%) 0.8 % 0.0-1.1 N NEUTROPHIL # (test code = NT#) 4.13 K/mm3 2.00-7.50 N LYMPHOCYTE # (test code = LY#) 1.55 K/mm3 1.50-4.00 N MONOCYTE # (test code = MO#) 0.43 K/mm3 0.2-0.8 N EOSINOPHIL # (test code = EO#) 0.05 K/mm3 0.04-0.4 N BASOPHIL # (test code = BA#) 0.05 K/mm3 0.02-0.10 N MANUAL DIFF REQUIRED (test code = NO MANUAL DIFF MDIFF) NUCLEATED RED BLOOD CELL (test 0 % 0-0 N code = NRBC) Novel Coronavirus 2018 [id number] 08:22:00 Test Item Value Reference Range Interpretation Comments Novel Coronavirus 2018 Inhouse (test Negative Negative code = COVNONPUI) Novel Coronavirus 2018 [id number] 08:22:00 Test Item Value Reference Range Interpretation Comments Novel Coronavirus 2018 Inhouse (test Negative Negative code = COVNONPUI) Notes Date/Time Note Provider Source 2021-08-03 10:58:00-00:00 [id number] [place] [address] PATIENT NAME: OZIEL BEAVER ADMIT DATE: 08/03/21 ACCOUNT NO: [id number] ROOM NO: AGE: 76 REPORT TYPE: OPERATIVE REPORT SEX: F ADMITTING PHYSICIAN: ATTENDING PHYSICIAN:Adair Calderon MD OPERATION DATE: 08/03/2021 PREOPERATIVE DIAGNOSES: 1. Right knee synovitis with associated patellar clunk syndrome. 2. Right little trigger finger. 3. Left ring trigger finger. 4. Left little trigger finger. POSTOPERATIVE DIAGNOSES: 1. Right knee synovitis with associated patellar clunk syndrome. 2. Right little trigger finger. 3. Left ring trigger finger. 4. Left little trigger finger. PROCEDURES PERFORMED: 1. Right knee diagnostic arthroscopy wit h arthroscopic synovectomy involving 2 or more compartments major, 95030. 2. Release right little trigger finger, 09110. 3. Injection left little and left ring trigger f ingers, 21940 x2. SURGEON: Adair Calderon MD STRUCTURAL MILL SUPERVISOR: CARLOTTA Holder ANESTHESIA: General. TOURNIQUET TIME: Right knee 50 minutes, tourniquet time right hand 12 minutes. ESTIMATED BLOOD LOSS TOTAL: None. OPERATIVE FINDINGS: As above. SURGICAL SPECIMEN SENT: None. CLINICAL INDICATIONS: Ms. Beaver is a very pleasan t 76-year-old female from [place], [place], who has dev eloped anterior knee pain involving her right total knee arthroplasty. Her pain is continuing on a d aily basis and has not responded to appropriate nonoperative treatment. Her clinical as well as radiographic evaluation demonstrated a s ymptomatic patellar clunk syndrome. In addition, she is having severe triggerin g involving the right little finger as well as mild to moderate tri gger involving the left little and left ring finger. She is admitted for arthroscopic synove ctomy, release of right little trigger PATIENT NAME: OZIEL BEAVER 638 finger along with corticosteroid injection, left little and left ring trigger fingers. OPERATIVE NARRATIVE: 1. RIGHT KNEE DIAGNOSTIC ARTHROSCOPY WITH AN ART HROSCOPIC MAJOR SYNOVECTOMY INVOLVING TWO OR MORE COMPARTMENTS, 47937. 2. RELEASE RIGHT LITTLE TRIGGER FINGER, 91036. 3. CORTICOSTEROID INJECTION INVOLVING BOTH THE L EFT LITTLE AND LEFT RING TRIGGER FINGERS, 94118 x2. Ms. Beaver was brought to the operative suite, at which time, she was placed in supine position on the OR table. Routine monitor s were established. General anesthesia was delivered. After satisfactory ind uction of general anesthesia, tourniquets were applied to the patient's right lower extremity as well as right upper extremity. The right leg was placed in art hroscopic leg jordan. Leg was elevated, exsanguinated, tourniquet insufflated to 300 mmHg. Right knee was then circumferentially prepped and draped in usu al sterile fashion per Glory. Anterolateral portal was established. Ar throscope was introduced. Intraarticular evaluation re vealed a prominent hypertrophic synovial nodule. An accessory superomedial mohamud l was established. Synovial resector was introduced and the hypertrophic nodule was resected. Modera te synovitis was noted involving the medial compartment, this was also resected. Absolutely no evidence of any purulence was note d. There was no wear of the prosthesis. There was no instability. The remain ing intraarticular evaluation was entirely within normal limits. Thorough lavage was performed with lactated Ring er's solution. Arthroscopic portals were closed respectively with a subcuticular 4-0 Vicryl suture per Ms. Holder. Sterile dressing was applied per Ms. Shelton. At this time, the tourniquet was deflated and the right upper extr emity was circumferentially prepped and draped in usual sterile fashion. The arm was elevated, exsanguinated, tourniquet in sufflated to 250 mmHg. An oblique incision was made at the level of the distal palmar crease involvi ng the right little finger. Under loupe magnification, the A1 aldo was miranda ntified and release was performed utilizing an 11 blade. The finger was put through full range of motion. No further triggering was noted. Antibio tic lavage was performed to the surgical site. Skin clos ure was performed utilizing a vertical mattress 5-0 nylon suture per Ms. Holder. Sterile dressing wa s applied per Ms. Holder. Tourniquet deflated. The left hand was then asept ically prepped and 40 mg of Depo-Medrol was injected respectively into the A1 aldo involving both t he left little and left ring finger respectively. The patient was then extubated, taken to the rec overy room awake and alert without any anesthetic or operative complication s. At the end of the case, sponge and needle counts were correct x2 . During the procedure, Ms. Holder was invaluable in positioning th e patient with preparation and draping of extremity. She was also vital in providing surgical exposu re throughout the procedure, which greatly expedited performance of t he procedure in addition to protection of neurovascular structures. Finally, she was re sponsible for intraarticular injection of postoperative anesthetic as well as application of postoperative dressing. PATIENT NAME: OZIEL BEAVER 638 Dictated By: Adair Calderon MD WT: OP:ANNE/SIMRAN/ARCHIE Conf#: [id number]/DID#: [id number] Authenticated by Adair Calderon MD On 2 03:54:49 PM Electronically Signed by Adair Calderon MD on 0 08/03/21 at 0354 PATIENT NAME: OZIEL BEAVER 638 2021-08-03 06:50:00-00:00 [facility] Brief Op Note REPORT#:[id number] REPORT STATUS: Signed DATE:08/03/21 TIME: 0650 PATIENT: OZIEL BEAVER UNIT #: [id number] ROOM/BED: : 43 AGE: 76 SEX: F ATTEND: Blake Calderon MD ADM AUTHOR: Lacie Holder * ALL edits or amendments must be made on the [employer]/computer document * Op/Inv Proc Note - Brief Pre-procedure diagnosis: Right knee synovitis Bilateral small finger trigger finger, left ring finger trigger finger Post-procedure diagnosis: same as pre procedure dx Procedures performed: Right knee arthroscopy Right small finger trigger release Left small and ring finger trigger finger CS inj ection Primary Surgeon: [employer] Specialist(s): Glory ELKINS Findings: as above Complications: none Estimated blood loss in ml's: none Specimens removed/altered: none Electronically Signed by Lacie Holder on 0 08/03/21 at 1059 Electronically Signed by Adair Calderon MD on at 1553 RPT #:[id number] END OF REPORT 2021-07-30 13:04:00-00:00 [id number] [place] [address] PATIENT NAME: OZIEL BEAVER ADMIT DATE: ACCOUNT NO: [id number] ROOM NO: AGE: 76 REPORT TYPE: HISTORY AND PHYSICAL SEX: F ADMITTING PHYSICIAN: ATTENDING PHYSICIAN:Adair Calderon MD ADMISSION DATE: 08/03/2021 ADMITTING DIAGNOSES: 1. Right knee tenosynovitis with secondary saunders lar clunk syndrome. 2. Symptomatic trigger finger, right little fing er. 3. Symptomatic trigger finger involving the left little finger. 4. Symptomatic trigger finger involving the left ring finger. HISTORY OF PRESENT ILLNESS: Ms. Beaver is a 76-yea r-old right hand-dominant female, who has had a previous total knee arthro plasty. She has developed anterior crepitus to the knee. This affects her ascending and descending stairs. Symptoms have not improved despite nonop erative intervention. In addition to her anterior knee pain regarding the right knee, she has severe catching and locking of the right little finger with eeer-ax-uculmcfa locking involving the left little and left ring finger. Due to her progressive disability, she is admitted for arthroscopic syn ovectomy with arthroscopic resection of hypertrophic sy novial nodule as well as release of the right little trigger finger, in addition to corticosteroid injections involving the left ring and left little finger. PAST MEDICAL HISTORY: Arthritis, sleep apnea and osteopenia. PAST SURGICAL HISTORY: Include an appendectomy, cholecystectomy, gastric bypass, left ring trigger finger release, hyster ectomy, lumbar laminectomy, tonsillectomy, right total knee arthroplasty. FAMILY HISTORY: Carcinoma and hypertension. SOCIAL HISTORY: She does not smoke nor does she drink. ALLERGIES: SHE NOTES ALLERGIES TO KEFLEX AND PEN ICILLIN. MEDICATIONS: Consist of latanoprost, Neurontin a nd Synthroid. REVIEW OF SYSTEMS: Negative. PHYSICAL EXAMINATION: VITAL SIGNS: 4 feet 11 inches tall, 65.9 kg. HEENT: Within normal limits. CARDIAC: Regular rate and rhythm. No murmur. CHEST: Clear. ABDOMEN: Benign. PATIENT NAME: OZIEL BEAVER 638 BACK: No CVA tenderness. PERTINENT ORTHOPEDIC EVALUATION: Examination of her right knee reveals a well-healed midline incision. She has no effusio n. She has no erythema. She has 0 to 125 degrees of motion. Patellofemoral c repitus is noted. There is no maltracking. There is no instability. Her distal neurovascular status is intact. Examination of the right hand reveals se naida triggering involving the right little finger. Neurologically, she is inta ct, 2+ pulses are palpable. Examination of the left hand revealed mild triggering involving the left little and left ring finger. DIAGNOSTIC DATA: Radiographic evaluation of the right knee reveals a well-fixed, well-positioned total knee arthropla sty. ASSESSMENT: Symptomatic dominguez llar clunk syndrome, right knee with a severe right little trigger finger and a ktjw-ki-twhy rate left little and left ring trigger finger. SURGICAL PLAN: To proceed with an arthroscopic s ynovectomy and resection of hypertrophic synovial nodule , right knee with a concomitant release of the right little finger, as well as corticosteroid injecti ons into the left little and left ring finger. I have della e over at length with Ms. Beaver the associated risks involved with this procedure. She unders tands these include but not limited to bleeding, infection, neurova scular damage, persistent pain, loss of motion, need for further operative interv ention, recurrence of the triggering, flexor tendon injury, digital nerve injury, painful scar, loss of motion, along with complications secondary to anesthesia. Mely Beaver further understands that there are absolutely no guarantees or warranties that she will be pain free as a result of the procedure. She accepts these risks and gives her informed consent to proceed. Dictated By: Adair Calderon MD WT: HP:ANNE/SIMRAN/ARCHIE Conf#: [id number]/DID#: [id number] Authenticated by Adair Calderon MD On 03:18:23 PM Electronically Signed by Adair Calderon MD on 0 07/30/21 at 0318 PATIENT NAME: OZIEL BEAVER 638 2020-09-09 10:38:00-00:00 [facility] Clinical Note REPORT#:[id number] REPORT STATUS: Signed DATE:09/09/20 TIME: 1038 PATIENT: OZIEL BEAVER UNIT #: [id number] ROOM/BED: [address] : [address] AGE: 75 SEX: F ATTEND: Ole Calderon MD ADM AUTHOR: Gustavo Griggs MD * ALL edits or amendments must be made on the el NI/computer document * Clinical Note Note: [facility] Gustavo coy M.D. (cell text [phone]) Assessment/Plan 1.) Anemia of acute blood loss- .Hgb 9.3, asympt omatic. 2.) S/p Left Trigger finger Right TKA .acute mul ti-modal pain control and followup. Anticoagulation as per Dr. Calderon. 3.) Hypothyroid- .continue on Rx. 4.) OsteoArthritis ERICK GERD Overactive Bladder- .continue on Rx. * OK for DISCHARGE per Internal Medicine. Prior Events/Overnight: Uneventful. Chief Complaint: No significant complaints. Objective Vital Signs: Date Time Temp Pulse Resp B/P B/P Pulse O2 O2 F low FiO2 Mean Ox Delivery Rate 09/09 0730 100 Nasal 2 28 cannula 09/09 0715 97.0 64 18 125/69 87.7 100 Nasal cannula 09/09 0342 96.1 65 20 117/55 79 100 Nasal cannula 09/09 0208 100 Nasal 3 32 cannula 09/08 2311 100 Nasal 3 32 cannula 09/08 2221 97.5 66 20 116/58 81 100 Nasal cannula 09/08 2000 97.9 76 20 155/67 97 100 Nasal cannula 09/08 1900 Nasal 3 cannula 09/08 1600 100 Nasal 3 32 cannula 09/08 1525 96.3 73 16 127/71 89.5 100 Nasal 3 cannula 09/08 1400 100 Nasal 3 32 cannula 09/08 1333 Nasal 3 cannula 09/08 1207 97.2 77 17 136/75 95.1 97 Nasal cannula 09/08 1140 98 Nasal 3 32 cannula 09/08 1140 96.1 84 17 179/78 111.5 98 Nasal cannula 09/08 1115 76 15 148/65 100 Nasal 3 cannula 09/08 1112 Nasal 3 cannula Gen: Alert, oriented, in mild discomfort Neck: No Masses, No Thyromegaly- CV: Regular Rate Rhythm / Edema- no significant Resp: Clear To Ascultation / Normal Respiratory Effort ABD: NonTender / NonDistended MS/Skin: No sign of compartment syndrome / +ankl e DF/PF Other: drain out Labs/X-ray: Laboratory Tests: 09/10 347 Chemistry Sodium (136 - 145 mmol/L) 140 Potassium (3.5 - 5.1 mmol/L) 4.9 Chloride (98 - 107 mmol/L) 104.0 Carbon Dioxide (21 - 32 mmol/L) 31.9 BUN (7 - 18 mg/dL) 20 H Creatinine (0.55 - 1.30 mg/dL) 0.67 Glomerular Filtr Rate (>60) 85.3 Glucose (70 - 110 mg/dL) 102 Calcium (8.2 - 10.1 mg/dL) 8.1 L Hematology Hgb (12 - 16 g/dL) 9.3 L Hct (37 - 47 %) 29.5 L Gustavo Miller M.D. at [address] [facility] #:[id number] END OF REPORT 2020-09-09 08:35:00-00:00 [facility]) Discharge Summary REPORT#:[id number] REPORT STATUS: Signed DATE:09/09/20 TIME: 08 PATIENT: OZIEL BEAVER UNIT #: [id number] ROOM/BED: Y315-A : 43 AGE: 75 SEX: F ATTEND: Blake Calderon MD ADM AUTHOR: Adair Calderon MD * ALL edits or amendments must be made on the [employer]/computer document * General Information Discharge date: 09/09/20 Hospital course: Discharge Diagnosis: Right Knee Degenerative Dis ease Procedure: Right Knee Arthroplasty Hospital Course and Findings The patient underwent the pr ocedure without incident. Findings were significant for degenerative disease of the knee. The patien t was hemodynamically and medically monitored during the postoperative per iod. Anticoagulation was instituted for postoperative DVT prophylaxis. Th e patient was progressively able to tolerate PO pain med ications and the appropriate diet. Physical therapy was instituted, with a progressive ability to am bulate and perform exercises. The patient was eventually deemed stable and saf e for discharge. Despite factors which projected a longer hospita l stay, the patient fulfilled criteria for earlier than expected disch arge, including control of pain, early mobilization with therapy, and a stable hemodyna yosvany status. At discharge, the patient was comfortabl e, with a controlled pain level. There were no chest or abdominal symptoms present. Dis charge physical examination demonstrated stable vital signs and no acute dis tress. The patient had an intact wound with no signifi cant drainage, and no calf tenderness and a negative Lyndsey's sign bilaterally. There were no neurolog ic or vascular deficits or changes from the preoperative state. Disposition: Discharged to home Discharge Condition: Stable Instructions: Instruction sheet given to patient Activity: Ambulate with assistance, with weight- bearing as instructed in the hospital. Diet: As per preoperatively Prescriptions 1. Pain Medications: As per discharge prescription, with progressive weaning as pain decreases 2. Anticoagulation: As per discharge prescription, or PreOp anticoa gulant, as discussed with patient 3. Physical Therapy: Will undergo PT for gait training, mobilization , ayrxu-ea-zqcptp, and strengthening. Patient was informed that they ne ed to arrange for therapy as quickly as possible. The imp ortance of early advancement of hayxv-ik-zvlpas with home exercises, and physical therapy was stresse d to the patient. Follow-up Appointment: Patient instructe d to arrange appointment for an office visit in 2 weeks Med Rec Med Rec Discharge meds: Continue taking these medications: LEVOTHYROXINE (SYNTHROID) 50 MCG TAB 50 MICROGRAM ORAL DAILY. ASPIRIN (ASPIRIN) 81 MG TAB.CHEW 81 MILLIGRAM ORAL DAILY. MULTIVITAMIN/MIN/IRON/LUTEIN (CENTRUM SILVER ULT RA WOMEN) 1 EACH TAB 1 EACH ORAL DAILY. MELATONIN (MELATONIN) 3 MG TAB 1.5 MILLIGRAM ORAL BEDTIME. as needed for INSOM DUANE TOLTERODINE LA (DETROL LA) 4 MG CAP.SR.24H 4 MILLIGRAM ORAL BEDTIME. CYANOCOBALAMIN (VITAMIN B-12) 100 MCG TAB 100 MICROGRAM ORAL DAILY. HYOSCYAMINE SL (ANASPAZ SL) 0.125 MG TAB.SL 0.125 MILLIGRAM SUBLINGUAL THREE TIMES DAILY NEEDED. as needed for INDIGESTION NAPROXEN SODIUM (ALEVE) 220 MG TAB 220 MILLIGRAM ORAL EVERY 12 HR NEEDED. as ne eded for PAIN CHOLECALCIFEROL (VITAMIN D3) (VITAMIN D3) 50,000 UNIT CAP 50,000 UNIT ORAL EVERY 7 DAYS. Discharge Instructions PCP )( Discharge to: Home/Self Care Discharge Instructions Additional Discharge Routines: Attending Follow- Up )( Diet: Regular Follow-up Appointments Attending Physician: Attending Physician: Adair Calderon MD Electronically Signed by Adair Calderon MD on at 0837 RPT #:[id number] END OF REPORT 2020-09-08 17:18:00-00:00 [facility] ([facility]) Clinical Note REPORT#:[id number] REPORT STATUS: Signed DATE:09/08/20 TIME: 1718 PATIENT: OZIEL BEAVER UNIT #: [id number] ROOM/BED: [facility]-A : 43 AGE: 75 SEX: F ATTEND: Blake Calderon MD ADM AUTHOR: Gustavo Griggs MD * ALL edits or amendments must be made on the el [employer]/computer document * Clinical Note Note: [facility] Gustavo coy MD (cell text [phone]) Internal Medicine Consult at request of : Dr. Beatris Calderon Chief Complaint: right knee pain HPI: 75 yo F is now s/p Right Total Knee Arthrop lasty (TKA) and injection to left ring trigger finger by Dr. Calderon. Ms. Beaver relates 15 to 20 years of progressive right knee pain (recently severe), worse with activity, and popping crunchy with restricted motion at times in quali ty. She has failed conservative management. Comorbidities: see below. PmHx: .Sleep apnea with CPAP, hypothyroidism, ov eractive bladder, GERD, osteoarthritis ALLERGY: Allergies: Penicillins (Coded, Severe, RASH, 09/02/20) banana (Coded, Severe, SNEEZING, 09/02/20) cephalexin (From KEFLEX) (Coded, Severe, RASH, 0 09/02/20) wheat (Coded, Severe, SNEEZING, 09/02/20) Home Medications: Home Medications: LEVOTHYROXINE (SYNTHROID) 50 MCG PO DAILY ASPIRIN 81 MG PO DAILY MULTIVITAMIN/MIN/IRON/LUTEIN (CENTRUM SILVER ULT RA WOMEN) 1 EACH PO DAILY TOLTERODINE LA (DETROL LA) 4 MG PO BEDTIME CYANOCOBALAMIN (VITAMIN B-12) 100 MCG PO DAILY MELATONIN 1.5 MG PO BEDTIME PRN INSOMNIA HYOSCYAMINE SL (ANASPAZ SL) 0.125 MG SL TID PRN PRN INDIGESTION NAPROXEN SODIUM (ALEVE) 220 MG PO Q12H PRN PRN P AIN CHOLECALCIFEROL (VITAMIN D3) (VITAMIN D3) 50,000 UNIT PO Q7D SgHx: . Tonsillectomy, left TKA, back cedeño rgery, appendectomy, gastric bypass in 2008, left foot reconstructi on, cataract, hernia repair x2, bladder suspension, and right CTR/trigger finger release SHx: Tob: none FHx: .No significant hx of DVT/PE . Alcohol: none Drugs: none Lives: with family Vitals: Vital Signs: Date Time Temp Pulse Resp B/P B/P Pulse O2 O2 F low FiO2 Mean Ox Delivery Rate 09/08 1600 100 Nasal 3 32 cannula 09/08 1525 96.3 73 16 127/71 89.5 100 Nasal 3 cannula 09/08 1400 100 Nasal 3 32 cannula 09/08 1333 Nasal 3 cannula 09/08 1207 97.2 77 17 136/75 95.1 97 Nasal cannula 09/08 1140 98 Nasal 3 32 cannula 09/08 1140 96.1 84 17 179/78 111.5 98 Nasal cannula 09/08 1115 76 15 148/65 100 Nasal 3 cannula 09/08 1112 Nasal 3 cannula 09/08 1100 74 19 153/68 100 Nasal 3 cannula 09/08 1045 74 20 144/64 99 Nasal 3 cannula 09/08 1030 73 20 153/67 100 Nasal 3 cannula 09/08 1015 74 12 138/62 100 Simple 8 mask 09/08 1001 Simple 8 mask 09/08 0958 98.5 76 16 121/59 98 Simple 8 mask 09/08 0705 97.0 61 16 165/73 97 Room air Gen: Alert, in mild discomfort, nl nutrition. EYE: Nl lids conjunctiva. ENT: Nl ears Nose, nl lips,. Neck: Supple, nl thyroid, No masses. CV: Regular Rate Rhythm, no heave or significant murmur. Edema- none RESP: Clear to Auscultation, normal Respiratory effort. ABD: Soft, NonDistended,. LYM: No significant cervical Lymphadenopathy. MS: No sign of compartment syndrome, Knee is wra pped, drain in place NEURO: Nonfocal, grossly normal sensation of LE, +Ankle DF/PF PSY: Normal insight, Normal mood, oriented, . Preop Labs (09/02/2020): CBC:. Hgb 11.7, Plt 148, CHEM: Na 141, K 4.7, Cr 0.73 (eGFR 77.3%), . Ekg: NSR (medium to high risk of complications or morbidi ty) (major surgery) (IV sedative, meds) Assessment Plan 1.) Anemia of Acute Blood Loss- .will recheck to gagan. 2.) S/p Left Trigger finger Right TKA .acute mul ti-modal pain control and followup. Anticoagulation as per Dr. Calderon. 3.) Hypothyroid- .continue on Rx. 4.) OsteoArthritis ERICK GERD Overctive Bladder- . continue on Rx. Gustavo Miller M.D. Thanks! G8427 - current medications obtained and marge silverman G8730 - pain assessment with tool and followup p grazyna 1126F - offered discussion o n advanced care plan and patient declined to address issue at this time. at 2106 RPT #:[id number] END OF REPORT 2020-09-08 16:24:00-00:00 [facility] ([facility]) Brief Op Note REPORT#:[id number] REPORT STATUS: Signed DATE:09/08/20 TIME: 1623 PATIENT: OZIEL BEAVER UNIT #: [id number] ROOM/BED: [address] : 43 AGE: 75 SEX: F ATTEND: Blake Calderon MD ADM AUTHOR: Adair Calderon MD * ALL edits or amendments must be made on the [employer]/computer document * Op/Inv Proc Note - Brief Pre-procedure diagnosis: Right knee OA Left trigger finger Post-procedure diagnosis: same as pre procedure dx Procedures performed: Right Total Knee Arthroplasty 91094 Left ring finger trigger injection 38211 Primary Surgeon: Kvng Business Analysis Specialist(s): Brenda LSA Findings: as above Complications: none Estimated blood loss in ml's: 25cc Specimens removed/altered: none Electronically Signed by Adair Calderon MD on at 1629 RPT #:[id number] END OF REPORT 2020-09-08 09:45:00-00:00 [id number] [place] [address] PATIENT NAME: OZIEL BEAVER ADMIT DATE: 09/08/20 ACCOUNT NO: [id number] ROOM NO: [facility] AGE: 75 REPORT TYPE: OPERATIVE REPORT SEX: F ADMITTING PHYSICIAN:Adair Calderon MD ATTENDING PHYSICIAN:Adair Calderon MD OPERATION DATE: 09/08/2020 PREOPERATIVE DIAGNOSES: 1. Right knee osteoarthritis. 2. Left ring trigger finger. POSTOPERATIVE DIAGNOSES: 1. Right knee osteoarthritis, M17.11. 2. Left ring trigger finger, M65.342. OPERATIVE PROCEDURES PERFORMED: 1. Computer-assisted imageless right total knee arthroplasty, 32566. 3. Corticosteroid injection, left ring trigger f paul, . IMPLANTS UTILIZED: DePuy Sigma total knee system , size 2 right posterior stabilized femur, size 2 fixed-bearing tibial tr ay, 2 x 8 mm fixed-bearing posterior stabilized tibial insert, and 35 mm ov al patella. All components cemented. ANESTHESIA: General. TOURNIQUET TIME: 20 minutes. ESTIMATED BLOOD LOSS: Less than 20 mL. SURGEON: Adair Calderon M.D. STRUCTURAL MILL SUPERVISOR: DANIELE Ruiz/DENNIS. CLINICAL INDICATIONS: Ms. Beaver is a very pleasan t 75-year-old female from [place], [place], who has been having pro gressive and severe pain involving her right knee. She is experiencing pain on a daily basis. The pain awakens her at night. Her pain has been refractory to nonoperat lula treatment. In addition to her right knee pain, she has had continu ing triggering involving the left ring finger. Due to her significant disabilit y and lack of response to nonoperative treatment, she is admitted for computer-assisted imageless right total knee arthroplasty with corticosteroid injection of th e left ring trigger finger. OPERATIVE NARRATIVE: 1. COMPUTER-ASSISTED IMAGELESS RIGHT TOTAL KNEE ARTHROPLASTY, 16320. PATIENT NAME: OZIEL BEAVER 451 3. CORTICOSTEROID INJECTION, LEFT RING TRIGGER F PAUL, . PROCEDURE IN DETAIL: Ms. Beaver was brought to the operative suite, at which time, she was placed in supine position on the OR table. Routine monitors were established. General anesthesia was deli jace. After satisfactory induction of general anesthesia, a tourniquet was applied to the patient's right lower extremity per Mr. Gutierrez and the right leg was circumferentially prepped and draped in usual sterile fashion per Mr. Sharad espinoza. The leg was then elevated, exsanguinated, tourniquet insufflated to 300 mmHg. The knee was flexed to 100 degrees. Anterior midline incision was performed. Medial parapatellar arthrotomy was performed. Patella w as everted laterally. Severe grade IV changes noted in all 3 compartments. Hy pertrophic osteophytes were resected. Ligament balancing was achieved. Media l and lateral menisci were excised. Anterior and posterior cruciate ligamen ts were resected. A centramedullary pin was pl aced in the anatomic center of the distal femur and the OrthAlign guide was placed over the centrame dullary pin. The knee was registered. The guide was pinned in 0 degrees of varus valgus angulation, 3 degrees of flexion. The distal 10 mm of the femu r was then resected. The OrthAlign guide was removed. The distal femur wa s appropriately sized and a size 2 cutting block was used to create the ante rior, followed by posterior, followed by chamfer cuts. The appropriate osteot juancho guide was then placed across distal femur and the femoral notc h was resected. The proximal tibia was translated anteriorly. Utilizing extramedullary instrumentation, the proximal tibia was resected perpendic ular to its mechanical axis resecting 10 mm from the lateral tibial plateau. The proximal tibia was appropriately sized and a size 2 cutting block was used to create the ant erior, followed by posterior, followed by chamfer cuts. Proximal tibia was appropriatel y prepped. The patella was then resected so as to ensure restoratio n of its normal height with prosthesis in place. Flexion as well as extension gaps were checked a nd noted to be equal. Trial components were placed into the joint. Optimal stability was noted with an 8 mm insert, 0 degrees of gravity extension with 138 degrees of gravity flexion were present. Patellofemoral tracking was within norm al limits with no varus or valgus instability noted. The knee was stable in both flexion as well as extension. The trial components were removed. The b kathie surfaces were prepared with cement implantation utilizing pulsatile lavage irrigati on. The tibial tray was cemented into place followed by cement implantat ion of femoral component. Polyethylene insert was then placed on t he tibial tray and the knee was placed in full extension. Patellar component was cement ed. Tourniquet deflated. Meticulous hemostasis achieved with Bovie electr ocautery. Copious antibiotic lavage was performed. Medium Hemovac drain was then placed deep to the extensor mechanism and the knee was p laced into 70 degrees of flexion. Arthrotomy closed in watertight fashion with a 2.0 Quill suture. Skin was closed with interrupted 0 Vicryl, followed by 2-0 Vicryl, followed by cedeño rgical dav per Mr. Gutierrez. Sterile dressing was applied by Mr. Gutierrez. At this time, the left hand was asepticall y prepped and the A1 aldo was injected with 40 mg of Depo-Medrol. Ms. Beaver was then extubated, arya en to recovery room awake and alert without any anesthetic or operative compli cations. At the end of the case, sponge and needle counts were correct x2. PATIENT NAME: OZIEL BEAVER 451 During the procedure, MrRigo castellanos was invaluable in positioning the patient along with preparation and draping of extremity. He was also vital for providing exposure throughout the procedure, whi ch greatly expedited the performance of the procedure and additional prot ection of neurovascular structures. Finally, he was responsible for clos ure of the postoperative incisions and application of postoperative dress ing. Utilizing the OrthAlign guidance system can greatly reduce both intraoperative and postoperative blood loss due to lack of creation of intramedullary tunnel in the distal femur. Also, the accuracy of the distal femoral resection is greatly enhanced as compared to standard intramedullary instrumentation. Dictated By: Adair Calderon MD WT: OP:ANNE/SIMRAN/ARCHIE Conf#: [id number]/DID#: [id number] Authenticated by Adair Calderon MD On 12:04:14 PM Electronically Signed by Adair Calderon MD on 0 09/08/20 at 1204 PATIENT NAME: OZIEL BEAVER 451 2020-09-03 18:32:00-00:00 [id number] [place] [address] PATIENT NAME: OZIEL BEAVER ADMIT DATE: ACCOUNT NO: [id number] ROOM NO: AGE: 75 REPORT TYPE: HISTORY AND PHYSICAL SEX: F ADMITTING PHYSICIAN:Adair Calderon MD ATTENDING PHYSICIAN:Adair Calderon MD ADMISSION DATE: 09/08/2020 ADMITTING DIAGNOSES: 1. Right knee osteoarthritis, M17.11. 2. Symptomatic trigger finger, left ring finger, M65.342. HISTORY OF PRESENT ILLNESS: Ms. Beaver is a very pleasant 75-year-old female, who is retired, who has been having severe a nd progressive pain in her right knee. Her pain has been ongoing fo r the past 15 to 20 years. The pain is occurring on a daily basis currently. The pain has not respon ded to extensive nonoperative intervention. Due to her progressive yoly n and lack of response to nonoperative treatment, Ms. Beaver is admit shanique for computer-assisted imageless right total knee arthroplasty. In addition, she will undergo a co rticosteroid injection of the left ring trigger finger due to the fact she is having triggering on a regular basis. PAST MEDICAL HISTORY: Osteoarthritis and sleep a pnea. PAST SURGICAL HISTORY: Surgeries include appende ctomy, knee arthroscopy, fracture repair, cholecystectomy, gastric bypass , partial hysterectomy, left total knee arthroplasty, lumbar laminectomy, and tonsillectomy. FAMILY HISTORY: Arthritis, prostate carcinoma, a nd hypertension. SOCIAL HISTORY: She is . She does [employer] work and she is retired. No alcohol or tobacco use is noted. MEDICATIONS: Consist of ____ and multivitamins. ALLERGIES: SHE HAS ALLERGIES TO PENICILL IN, BUT NO ANAPHYLAXIS. SHE ALSO NOTES ALLERGIES TO KEFLEX. REVIEW OF SYSTEMS: Negative. PHYSICAL EXAMINATION: VITAL SIGNS: 5 feet 2 inches tall, 66.3 kilogram s. HEENT: Within normal limits. CARDIAC: Regular rate and rhythm. No murmur. CHEST: Clear. ABDOMEN: Benign. BACK: No CVA tenderness. PERTINENT ORTHOPEDIC EVALUATION: Leg lengths are equal. Full painless motion PATIENT NAME: OZIEL BEAVER 451 of both hips. Examination of the right knee reve als a positive effusion. She has painful passive motion. She has 3 to 105 deg myranda of motion. There is no instability. She has a fixed varus deformity. He r distal neurovascular status is intact. Bilateral hip examination is within n ormal limits. Examination of the left hand reveals isolated triggering involv ing the left ring finger. Neurovascular status is intact. DIAGNOSTIC DATA: Radiographic evaluation of the right knee reveals varus alignment with jmbz-jc-umya disease. ASSESSMENT: Right knee pain secondary to severe osteoarthritis, left ring trigger finger. SURGICAL PLAN: Computer-assisted imageless right total knee arthroplasty with corticosteroid injection to left ring trigger fi nger. I have gone over at length with Ms. Beaver the associated risks involv ed with this procedure. She understands that these risks include, bu t not limited to bleeding, transfusion requirement, infection, neurovascular da mage, persistent pain, loss of motion, need for further operative i ntervention, leg length inequality, loosening of the prosthesis requiring possibl e revision, painful scar, persistent limp, deep vein thrombi leading to pulmonary emboli along with c omplications secondary to anesthesia. She also understands that the ring f paul may continue to trigger despite the corticosteroid injection. In additio n, she understands that there are no guarantees or warranties that she will be pain free as a result of the procedure. She understands that she will undergo a fixed-bearing posterior cruciate sacrificing total knee arthropl asty. In addition, inpatient admission is indicated for this patient due to her medical comorbidity and the fact that her bedroom is on [facility] of her house. Ms. Beaver accepts these risks and gives her informed consent to proceed. Dictated By: Adair Calderon MD WT: HP:ANNE/SIMRAN/ARCHIE Conf#: [id number]/DID#: [id number] Authenticated by Adair Calderon MD On 1 12:43:21 PM Electronically Signed by Adair Calderon MD on 0 09/04/20 at 1243 PATIENT NAME: OZIEL BEAVER 8451 2019-11-01 07:33:00-00:00 [id number] [place] [address] PATIENT NAME: OZIEL BEAVER ADMIT DATE: 11/01/19 ACCOUNT NO: [id number] ROOM NO: AGE: 74 REPORT TYPE: OPERATIVE REPORT SEX: F ADMITTING PHYSICIAN: ATTENDING PHYSICIAN:Adair Calderon MD OPERATION DATE: 11/01/2019 PREOPERATIVE DIAGNOSES: 1. Right carpal tunnel syndrome. 2. Right index trigger finger. POSTOPERATIVE DIAGNOSES: 1. Right carpal tunnel syndrome, G56.01. 2. Right index trigger finger, M65.321. PROCEDURES PERFORMED: 1. Right carpal tunnel release, 03769. 2. Release right index trigger finger, 57629. SURGEON: Adair Calderon MD STRUCTURAL MILL SUPERVISOR: NIURKA Giron ANESTHESIA: General. TOURNIQUET TIME: 9 minutes. ESTIMATED BLOOD LOSS: None. CLINICAL INDICATIONS: Ms. Fermin rea is a 74-year-old ejoff-fsci-rftwnkxl female from [place], [place], who has bee n having progressive pain involving her right hand. She notes significant dysest hesias in addition to triggering involving the right index finger. She is admitted for right carpal t unnel release along with release of the right index trigger finger. PROCEDURE IN DETAIL: 1. RIGHT CARPAL TUNNEL RELEASE, 31653. 2. RELEASE, RIGHT INDEX RING TRIGGER FINGER, 260 55. Ms. Beaver was brought to the operative suite, at which time, she was placed in supine position on OR table. Routine monitors we re established. General anesthesia was delivered. Af ter satisfactory induction of general anesthesia, a tourniquet was applied to the patient's right upper extremity per MsRigo Varghese and the right arm was circumfere ntially prepped and draped in usual sterile fashion per MsRigo Varghese. The arm was then elevated, exsanguinated, tourniquet insufflated to 250 mmHg. A 1.5 cm incision was made on the v olar aspect of the hand just distal to the palmar crease. Under loupe magnifi cation, the palmar fascia was PATIENT NAME: OZIEL BEAVER 151 divided. Transverse carpal ligament was identifi ed. A Hotchkiss retractor was placed deep to the ligament and the liga ment was excised utilizing a 15 blade. Neurolysis performed to the median nerve via sha rp dissection. Before the carpal canal was visualized, no patholog y was noted. The nerve was traced both proximally and distally. No constrictions were n oted. At this time, a separate oblique incisio n was made at the distal palmar crease at the level of the A1 aldo of the index finge r. Under loupe magnification, the A1 aldo was identified and excised lissette rea an 11 blade. The index finger was then put through full range of motion . No triggering was noted. Each surgical site was lavaged with antibiotic s olution. Skin closure was performed with a vertical mattress 4-0 nylon sut ure per Ms. Varghese. Sterile dressing was applied by Ms. Varghese. The pa tient was then placed in a well-padded short arm volar splint per Rigo Abimael. Ms. Beaver wa s then extubated, taken to recovery room awake and aler t without any anesthetic or operative complications. At the end of the case, sponge and needle count s were correct x2. During the procedure, Ms. Varghese was invaluable in positionin g the patient along with preparation and draping of extremity. She was al so responsible for providing surgical exposure throughout the procedu re which greatly expedited performance of the procedure in addition to protection of ne urovascular structures. Finally, she was responsible for closure of the postoperative incisions and application of postoperative dressing. Dictated By: Adair Calderon MD WT: OP:ANNE/SIMRAN/ARCHIE Conf#: [id number]/DID#: [id number] Authenticated by Adair Calderon MD On 0 08:37:23 AM Electronically Signed by Adair Calderon MD on 0 11/01/19 at 0837 PATIENT NAME: OZIEL BEAVER 151 2019-11-01 07:26:00-00:00 [facility] ([facility]) Brief Op Note REPORT#:[id number] REPORT STATUS: Signed DATE:11/01/19 TIME: 725 PATIENT: OZIEL BEAVER UNIT #: [id number] ROOM/BED: : 43 AGE: 74 SEX: F ATTEND: Blake Calderon MD ADM AUTHOR: Adair Calderon MD * ALL edits or amendments must be made on the el [employer]/computer document * Op/Inv Proc Note - Brief Pre-procedure diagnosis: right carpal tunnel syndrome and index trigger f paul Post-procedure diagnosis: same as pre procedure dx Procedures performed: right wrist carpal tunnel release and index trig shashi finger release Primary Surgeon: Kvng Business Analysis Specialist(s): Georgiana Varghese PA-C Findings: same as above Complications: none Estimated blood loss in ml's: none Specimens removed/altered: none Electronically Signed by Adair Calderon MD on at 0728 RPT #:[id number] END OF REPORT 2019-10-31 13:18:00-00:00 [id number] [place] [address] PATIENT NAME: OZIEL BEAVER ADMIT DATE: 11/01/19 ACCOUNT NO: [id number] ROOM NO: AGE: 74 REPORT TYPE: ELECTROCARDIOGRAM SEX: F ADMITTING PHYSICIAN: ATTENDING PHYSICIAN:Adair Calderon MD Order: [id number] Test Reason : PRE-OP CLEARANCE AGE Test Date/Time Stamp: MonOct 31 2019 13:18:33 Blood Pressure : / mmHG Vent. Rate : 062 BPM Atrial Rate : 062 BPM P-R Int : 172 ms QRS Dur : 070 ms QT Int : 414 ms P-R-T Axes : 072 080 073 degree s QTc Int : 420 ms Normal sinus rhythm Normal ECG No previous ECGs available Confirmed by DAMON ALTAMIRANO MD ([id number]) on 11/04/2019 3:33:58 PM Referred By: Adair Calderon Confirmed by:DAMON ALTAMIRANO MD Electronically Signed by Damon Altamirano MD on 10/15 03/04 at 1534 PATIENT NAME: OZIEL BEAVER 151 2019-10-31 06:46:00-00:00 [id number] [place] [address] PATIENT NAME: OZIEL BEAVER ADMIT DATE: ACCOUNT NO: [id number] ROOM NO: AGE: 74 REPORT TYPE: HISTORY AND PHYSICAL SEX: F ADMITTING PHYSICIAN: ATTENDING PHYSICIAN:Adair Calderon MD ADMISSION DATE: 11/01/2019 ADMITTING DIAGNOSES: 1. Right carpal tunnel syndrome, G56.01. 2. Right index trigger finger, M65.321. HISTORY OF PRESENT ILLNESS: Ms. 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 Pain awakens her at night. She has pain on a daily basis. In addition to the dysest hesias in the hand, she also has frequent triggering invo lving the right index finger. Her symptoms have not improved despite bracing as well as anti-inflammatories. Due to her significant disability and lack of response to nonop erative treatment, she is admitted for right carpal tunnel release along with concomita nt release of the right index trigger finger. PAST MEDICAL HISTORY: Osteoarthritis, sleep apne a. PAST SURGICAL HISTORY: Previous surgeries includ e an appendectomy, knee arthroscopy, left carpal tunnel release, cholecy stectomy, gastric bypass, hysterectomy, total knee arthroplasty, lumbar la minectomy, and tonsillectomy. FAMILY HISTORY: Prostate carcinoma and hypertens ion. SOCIAL HISTORY: She is . She does not smo ke nor does she drink. MEDICATIONS: Consist of aspirin, latanoprost, an d Synthroid in addition to Voltaren. ALLERGIES: SHE NOTES ALLERGIES TO KEFLEX WELL PENICILLIN. REVIEW OF SYSTEMS: Negative. PHYSICAL EXAMINATION: VITAL SIGNS: Height 5 feet 2 inches tall, 65.9 k ilograms. HEENT: Within normal limits. CARDIAC: Regular rate and rhythm. No murmur. CHEST: Clear. ABDOMEN: Benign. BACK: No CVA tenderness. PERTINENT ORTHOPEDIC EVALUATION: Cervical spine is unremarkable. Examination of the right hand reveals no significant thenar atrophy. She has a positive PATIENT NAME: OZIEL BEAVER 151 Tinel's and Phalen's sign at the carpal canal. S he has positive triggering involving the right index finger. Radial and uln ar nerves are intact. A 2+ pulses are palpable. DIAGNOSTIC DATA: Previous EMG evaluation reveals a severe right carpal tunnel syndrome. ASSESSMENT: Severe right carpal tunnel syndrome along with symptomatic index finger trigger finger. SURGICAL PLAN: Right carpal tunnel release and r elease of the right index trigger finger. I have gone over at length with Ms. Beaver the associated risks involved with this procedure. She understands th at these include but not limited to bleeding, infecti on, neurovascular damage specifically to the median nerve and digital nerve, flexor tendon injury, p ainful scar, persistent triggering, recurrence of th e carpal tunnel syndrome, need for further operative intervention along with comp lications secondary to anesthesia. In addition, she understands that there are a bsolutely no guarantees or warranties that she will be pain free as a result of the procedure. Ms. Armida arboleda accepts these risks and gives her informed consent to proceed. Dictated By: Adair Calderon MD WT: HP:ANNE/SIMRAN/ARCHIE Conf#: [id number]/DID#: [id number] Authenticated by Adair Calderon MD On 0 10:11:25 AM Electronically Signed by Adair Calderon MD on 0 10/31/19 at 1011 PATIENT NAME: OZIEL BEAVER 89"
[2022-07-27 16:25] LABS: Absolute Lymphocytes (CBC) 1.2 K/uL (0.7-4.9); Hematocrit 19.3 % (36.0-45.0); Lymphocytes % 26.2 % (15.3-44.8); MCV 67.4 fL (80-100); MPV 8.7 fL (7.6-11.3); RBC Red Blood Cell Count 2.87 M/uL (3.86-4.86)
[2022-07-27 16:28] LABS: Protime INR 1.22
[2022-07-27 16:36] LABS: Blood Morphology Comment NOTED (NOT SEEN); Hypochromasia 2+; Platelet Estimate ADEQ; White Blood Cell Scan OK (OK)
[2022-07-27 16:47] LABS: Potassium 3.9 mEq/L (3.5-5.1); Thyroid Stimulating Hormone 0.772 uIU/mL (0.358-3.740)
[2022-07-27] MEDS ORDERED: RIVAROXABAN 15 MG TABLET PO SCH (17:00)
--- NOTE | 2022-07-27 20:13 | RAD REPORT ---
EXAM DESCRIPTION: CT - Abdomen Pelvis W/Wo Contrast - 07/27/2022 4:44 pm CLINICAL HISTORY: Anemia-unknown etiology COMPARISON: Abdomen Pelvis W Contrast dated 12/14/2021; CT ABD PELVIS W CONTRAST dated 04/22/2015 TECHNIQUE: Thin cut axial CT imaging of the abdomen and pelvis was performed before and after intrav enous administration of 100 mL Isovue 300. Multiplanar reformats were generated and reviewed. All CT scans are performed using dose optimization technique as appropriate and may include automated exposure control or mA/KV adjustment according to patient size. FINDINGS: Interstitial thickening throughout the along basis with mosaic attenuation. The liver, spleen, and pancreas show no suspicious findings. No intra or extrahepatic biliary ductal dilation. Symmetric renal function is seen with no hydronephrosis or suspicious renal mass. Stable right renal midpole 2.2 centimeter cyst. Sequelae of gastric bypass and cholecystectomy. No dilated bowel loops. Mild wall thickening througho ut the stomach, although suboptimal distention limits evaluation. No free air, free fluid or inflamma tory stranding. No hernia, mass or bulky lymphadenopathy. The urinary bladder is without significant finding. No suspicious bony findings. IMPRESSION: No acute intra-abdominal process. Mild wall thickening throughout the stomach, could relate to nonspecific gastritis. Nondistention varma its evaluation. No other suspicious findings throughout the abdomen and pelvis.
[2022-07-27] MEDS ORDERED: NA CHLORIDE 0.9% 250 ML ONE (21:09)
[2022-07-27 22:32] LABS: Specific Gravity > 1.030 (1.005-1.030); Urine Bacteria 20-50 /HPF (<20); Urine Bilirubin NEGATIVE (Negative); Urine Blood Negative (Negative); Urine Clarity Clear (Clear); Urine Color Light-Yellow (Yellow); Urine Glucose NEGATIVE (Negative); Urine Mucus Slight /HPF (None Seen); Urine Protein NEGATIVE (Negative); Urine RBC <5 /HPF (None Seen); Urine Urobilinogen 1+ (Normal)
[2022-07-28] MEDS ORDERED: NA CHLORIDE 0.9% 250 ML ONE ×2 (01:24→13:57)
[2022-07-28 08:41] LABS: Hematocrit 28.2 % (36.0-45.0)
[2022-07-28] MEDS: AMLODIPINE 2.5 MG TAB PO SCH (09:02)
[2022-07-28] MEDS: FUROSEMIDE 40 MG TABLET PO SCH (09:03)
--- NOTE | 2022-07-28 15:14 | PN ---
Date of Progress Note: 07/28/2022 The patient states she feels considerably better since she got 2 units of blood. This is reflected i n her hemoglobin as well. As far as the etiology of her anemia is still somewhat near the possibilit y secondary to the aspirin and Xarelto combination has to be considered as a screening test for sligh tly elevated. She has no other indication of blood loss. The possibility of being a bone marrow con dition is also to be considered as well as scoping from above and below, which she has not had over 1 0 years. I will discuss this further with the fold skiver. Cardiology has been seeing her an d felt that the cath could be postponed until further delineation of the anemia. Depending on the sc heduling of the endoscopic procedures, the patient may be discharged later tonight or in the morning and then follow up with blood work early next week. HR/MODL Voice ID: [id number] Report ID: [id number]
[2022-07-28 15:22] VITALS: BMI 28.6
[2022-07-28 20:50] LABS: Hematocrit 33.1 % (36.0-45.0)
[2022-07-29 03:14] LABS: Absolute Lymphocytes (CBC) 1.5 K/uL (0.7-4.9); Hematocrit 31.3 % (36.0-45.0); Lymphocytes % 20.5 % (15.3-44.8); MCV 75.5 fL (80-100); RBC Red Blood Cell Count 4.14 M/uL (3.86-4.86)
[2022-07-29 03:35] LABS: Potassium 3.7 mEq/L (3.5-5.1)
[2022-07-29 07:42] VITALS: O2SAT 95
[2022-07-29] MEDS: AMLODIPINE 2.5 MG TAB PO SCH (08:31)
[2022-07-29] MEDS: FUROSEMIDE 40 MG TABLET PO SCH (08:31)
[2022-07-29 12:36] VITALS: BP 153/57; TEMP 97.9
--- NOTE | 2022-07-29 15:35 | PN ---
Date of Progress Note: 07/29/2022 Patient has now received 3 units of blood with her hemoglobin varying somewhat around 10 level. It i s unclear at this stage what the etiology is. However, she is stable enough to be discharged. Luc t the blood work and bleeding workup on Monday and depending on the results, we will progress to [facility] scoping procedure and/or bone marrow. She can be discharged. Stop the blood thinners including a spirin. Remain only on the Lasix and calcium channel mary. She will as mentioned have a blood wo rk on Monday and see me in the afternoon. HR/MODL Voice ID: [id number] Report ID: [id number]
== END 2022-07-29 14:13 | disposition home or self-care (01) ==
LOC: 2ND 13:31
PROVIDERS: ADMIT Family Medicine; ATTEND Family Medicine
DX: D64.9 Anemia, unspecified (principal)
CPT/HCPCS: 36430; 85025 ×2; 81001; 80048 ×2; 36415 ×2; 86900; 86850; 85610; 85044; 82565; 86901; 85730; 86920 ×4; 84443; 85018 ×2; 85014 ×2; 83036; 83540; 86922 ×2; 84466; 74178; Q9967; P9016 ×3; J7050 ×3; G0378

== ENCOUNTER 2022-09-14 08:30 | Day surgery (SDC) | payer OTHER ==
[2022-09-09 15:33] LABS: Protime INR 1.06
[2022-09-09 15:37] LABS: Potassium 3.9 mEq/L (3.5-5.1)
--- NOTE | 2022-09-11 13:15 | EKG ---
Test Date: 2022-09-09 Test Time: 15:05:11 Business Executive: SHAN MEASUREMENT RESULTS: Intervals: Rate: 69 KS: 170 QRSD: 68 QT: 410 QTc: 439 [place]: P: 80 KS: 170 QRS: 75 T: 66 INTERPRETIVE STATEMENTS: Normal sinus rhythm Normal ECG Compared to ECG 07/25/2022 15:55:52 No significant changes Electronically Signed On 09-11-22 13:12:26 CDT by Geoffrey Franklin
[2022-09-14] MEDS ORDERED: NA CHLORIDE 0.9% 500 ML ONE (08:51)
[2022-09-14] MEDS ORDERED: LIDOCAINE 1% 20 ML MDV ONE (09:12)
[2022-09-14] MEDS ORDERED: HEPA 1000U/500MLS 2,000 UNIT/1,000 ML BAG IV ONE (09:12)
[2022-09-14] MEDS ORDERED: MIDAZOLAM HCL 2 MG/2 ML INJ ONE (09:13)
[2022-09-14] MEDS ORDERED: HEPARIN 5000 UNIT/ML 1 ML VIAL ONE (09:13)
[2022-09-14] MEDS ORDERED: FENTANYL CITR 100 MCG/2 ML ONE (09:13)
[2022-09-14] MEDS ORDERED: VERAPAMIL HCL 10 MG/4 ML VIAL IV ONE (09:14)
[2022-09-14] MEDS ORDERED: HEPARIN 10,000 UNIT/10 ML VIAL IV ONE (09:14)
[2022-09-14] MEDS ORDERED: ATROPINE SULF 1 MG/10 ML SYR IV ONE (09:14)
[2022-09-14] MEDS ORDERED: CLOPIDOGREL 75 MG TABLET ONE (09:21)
[2022-09-14] MEDS ORDERED: TICAGRELOR 90 MG TABLET PO ONE (09:22)
[2022-09-14] MEDS ORDERED: ASPIRIN 325 MG TAB ONE (09:23)
[2022-09-14 15:52] VITALS: BP 124/47; TEMP 97.5; O2SAT 98
== END 2022-09-14 12:39 | disposition home or self-care (01) ==
LOC: PRE 08:30 → CCL 12:39
PROVIDERS: ATTEND Internal Medicine
DX: I20.0 Unstable angina (principal); R94.39 Abnormal result of other cardiovascular function study; I48.0 Paroxysmal atrial fibrillation; I34.2 Nonrheumatic mitral (valve) stenosis; R00.2 Palpitations; I65.23 Occlusion and stenosis of bilateral carotid arteries; E78.2 Mixed hyperlipidemia; I27.21 Secondary pulmonary arterial hypertension; E03.9 Hypothyroidism, unspecified; K75.9 Inflammatory liver disease, unspecified; Z88.0 Allergy status to penicillin; Z88.8 Allergy status to other drugs, medicaments and biological substances
CPT/HCPCS: 93005; 80048; 36415; 85610; 85730; 93458; 76937; C1893; Q9966; J1644; J2001; J2250; J3010; J7040; J0461

== ENCOUNTER 2024-05-18 23:07 | Emergency (ER) | payer OTHER ==
[2024-05-18 23:53] LABS: Absolute Basophils 0.1 K/uL (0-0.5); Absolute Eosinophils 0.1 K/uL (0-0.5); Absolute Lymphocytes (CBC) 1.6 K/uL (0.7-4.9); Absolute Monocytes 0.5 K/uL (0.1-1.3); Absolute Neutrophil 4.5 K/uL (1.8-8.0); Basophils % 1.2 % (0-1.3); Eosinophils % 1.1 % (0-4.4); Hematocrit 29.9 % (36.0-45.0); Hemoglobin 9.4 g/dL (12.0-15.0); Lymphocytes % 23.7 % (15.3-44.8); MCH 23.6 pg (27.0-35.0); MCHC 31.6 g/dL (32.0-36.0); MCV 74.7 fL (80-100); Monocytes % 8.1 % (3.3-12.3); Neutrophils % 65.9 % (41.7-73.7); Nucleated Red Blood Cells % 0.2 % (0-0); Platelets 145 thou/uL (152-406); Red Cell Distribution Width 17.3 % (12.1-15.2)
[2024-05-19] MEDS ORDERED: PHENYLEPHRINE 0.5% NOSE 15ML NAS ONE (00:18)
[2024-05-19 00:45] LABS: PT Prothrombin Time 11.8 SECONDS (10-13.0); Protime INR 1.04
[2024-05-19 01:13] LABS: Platelet Estimate ADEQ; White Blood Cell Scan OK (OK)
[2024-05-19 01:14] LABS: Blood Morphology Comment NOTED (NOT SEEN); Ovalocytes 2+; Polychromasia 1+
[2024-05-19 01:27] LABS: ALT/SGPT < 14 U/L (13-56); AST/SGOT 19 U/L (15-37); Albumin 3.7 g/dL (3.4-5.0); Albumin/Globulin Ratio 0.9 (1.1-1.8); Alkaline Phosphatase 107 U/L (45-117); Anion Gap 10.6 mEq/L (5.0-15.0); BUN Blood Urea Nitrogen 19 mg/dL (7-18); Bicarbonate 28 mEq/L (21-32); Bilirubin Total 0.3 mg/dL (0.2-1.0); Globulin 4.1 g/dL (2.3-3.5); Glomerular Filtration Rate 57 ml/min (=/>90); Glucose Level 99 mg/dL (74-106); Potassium 3.6 mEq/L (3.5-5.1); Protein, Total 7.8 g/dL (6.4-8.2); Sodium Level 137 mEq/L (136-145)
--- NOTE | 2024-05-19 01:32 | EDPHYS ---
Physician Documentation [facility] Name: Audra Beaver Age: 78 yrs Sex: Female : 1945 Arrival Date: 05/18/2024 Time: 23:07 Bed 14 Private MD: Ehsan Mccoy ED Physician Jose Raul Crouch HPI: 05/19 00:08 This 78 yrs old Female presents to ER via Ambulatory with complaints of Nose abby Bleed. 00:08 The patient presents with a nose bleed, and the bleeding resolved prior to arrival. abby Onset: The symptoms/episode began/occurred just prior to arrival. Modifying factors: The symptoms are alleviated by nothing. the symptoms are aggravated by nothing. Severity of symptoms: At their worst the symptoms were moderate in the emergency department the symptoms have improved moderately. The patient has not experienced similar symptoms in the past. Historical: - Allergies: 05/18 23:21 Keflex; br2 23:21 Morphine; br2 23:21 PENICILLINS; br2 - PMHx: 23:21 Atrial fibrillation; Hypertensive disorder; Hypothyroidism; br2 - PSHx: 23:21 knee replacement; br2 - Immunization history:: Adult Immunizations up to date. - Infectious Disease History:: Denies. - Social history:: Smoking status: Patient denies any tobacco usage or history of. Patient uses alcohol, occasionally. Patient/guardian denies using street drugs. ROS: 05/19 00:08 Constitutional: Negative for fever, chills, and weight loss, Eyes: Negative for injury, abby pain, redness, and discharge, Neck: Negative for injury, pain, and swelling, Cardiovascular: Negative for chest pain, palpitations, and edema, Respiratory: Negative for shortness of breath, cough, wheezing, and pleuritic chest pain, Abdomen/GI: Negative for abdominal pain, nausea, vomiting, diarrhea, and constipation, Back: Negative for injury and pain, : Negative for injury, bleeding, discharge, and swelling, MS/Extremity: Negative for injury and deformity, Skin: Negative for injury, rash, and discoloration, Neuro: Negative for headache, weakness, numbness, tingling, and seizure, Psych: Negative for depression, anxiety, suicide ideation, homicidal ideation, and hallucinations, Allergy/Immunology: Negative for hives, rash, and allergies, Endocrine: Negative for neck swelling, polydipsia, polyuria, polyphagia, and marked weight changes, Hematologic/Lymphatic: Negative for swollen nodes, abnormal bleeding, and unusual bruising, ENT: Positive for nose bleed, Exam: 00:08 Constitutional: This is a well developed, well nourished patient who is awake, alert, abby and in no acute distress. Head/Face: Normocephalic, atraumatic. Eyes: Pupils equal round and reactive to light, extra-ocular motions intact. Lids and lashes normal. Conjunctiva and sclera are non-icteric and not injected. Cornea within normal limits. Periorbital areas with no swelling, redness, or edema. ENT: Nares patent. No nasal discharge, no septal abnormalities noted. Tympanic membranes are normal and external auditory canals are clear. Oropharynx with no redness, swelling, or masses, exudates, or evidence of obstruction, uvula midline. Mucous membranes moist. Neck: Trachea midline, no thyromegaly or masses palpated, and no cervical lymphadenopathy. Supple, full range of motion without nuchal rigidity, or vertebral point tenderness. No Meningismus. Chest/axilla: Normal chest wall appearance and motion. Nontender with no deformity. No lesions are appreciated. Cardiovascular: Regular rate and rhythm with a normal S1 and S2. No gallops, murmurs, or rubs. Normal PMI, no JVD. No pulse deficits. Respiratory: Lungs have equal breath sounds bilaterally, clear to auscultation and percussion. No rales, rhonchi or wheezes noted. No increased work of breathing, no retractions or nasal flaring. Abdomen/GI: Soft, non-tender, with normal bowel sounds. No distension or tympany. No guarding or rebound. No evidence of tenderness throughout. Back: No spinal tenderness. No costovertebral tenderness. Full range of motion. Female : Normal external genitalia. Skin: Warm, dry with normal turgor. Normal color with no rashes, no lesions, and no evidence of cellulitis. MS/ Extremity: Pulses equal, no cyanosis. Neurovascular intact. Full, normal range of motion., bilateral aka Neuro: Awake and alert, GCS 15, oriented to person, place, time, and situation. Cranial nerves II-XII grossly intact. Motor strength 5/5 in all extremities. Sensory grossly intact. Cerebellar exam normal. Normal gait. Psych: Awake, alert, with orientation to person, place and time. Behavior, mood, and affect are within normal limits. Vital Signs: 05/18 23:19 BP 179 / 85; Pulse 77; Resp 18; Temp 97.1(TE); Pulse Ox 99% on R/A; Weight 54.43 kg; br2 Height 4 ft. 11 in. ; Pain 3/10; 05/19 00:45 BP 161 / 74; Pulse 75; Resp 17; Pulse Ox 99% ; vc1 01:45 BP 131 / 57; Pulse 61; Resp 17; Pulse Ox 99% ; vc1 05/18 23:19 Body Mass Index 24.24 (54.43 kg, 149.86 cm) br2 05/18 23:19 Pain Scale: Adult br2 MDM: 05/18 23:12 Medical Screening Exam [facility] 05/19 00:09 Differential diagnosis: spontaneous epistaxis. Data reviewed: vital signs, nurses [facility] notes, lab test result(s), CBC, electrolytes, hepatic panel. Consideration of Admission/Observation Escalation of care including admission/observation considered. I considered the following discharge prescriptions or medication management in the emergency department Medications were administered in the Emergency Department. See MAR. Test considered but Not performed: CT: no ct. 05/18 23:14 Order name: CBC with Diff; Complete Time: : [facility] 05/18 23:14 Order name: Comprehensive Metabolic Panel; Complete Time: [facility] 05/18 23:14 Order name: PT-INR; Complete Time: : [facility] 05/19 00:33 Order name: CBC Smear Scan; Complete Time: EDMS Administered Medications: 05/18 23:58 Not Given (Patient Refused): ns 0.9% 500 ml 500 ml IV at 1 bolus once; to be given as a kj2 bolus over 30 minutes 05/19 00:21 Drug: Stephane-Synephrine Intranasal [place] 0.5 % 2 sprays Intranasal once Route: Intranasal; vc1 Site: right nare; Disposition Summary: 05/19/24 01:31 Discharge Ordered Notes: Location: [place] abby Problem: new abby Symptoms: have improved abby Condition: Stable abby Diagnosis - Epistaxis abby Followup: abby - With: Ehsan Mccoy MD - When: 2 - 3 days - Reason: Recheck today's complaints, Continuance of care, Re-evaluation by your physician Followup: baby - With: Darline Davis MD - When: 2 - 3 days - Reason: Recheck today's complaints, Re-evaluation by your physician Discharge Instructions: - Discharge Summary Sheet abby - Nosebleed, Adult abby - Cool Mist Vaporizer abby - Nosebleed, Adult, Vigs-sr-Hozy abby Forms: - Medication Reconciliation Form abby - Antibiotic Education abby - Prescription Opioid Use abby - Patient Portal Instructions abby - Leadership Thank You Letter abby Signatures: Dispatcher [employer] EDJose Raul Winter MD MD cha Calcote, Vanessa RN RN vc1 Gregoria Mccarty RN RN br2 Belgica Beckford RN kj2
--- NOTE | 2024-05-19 01:32 | ER ---
Nurse's Notes [facility] Name: Audra Beaver Age: 78 yrs Sex: Female : 1945 Arrival Date: 05/18/2024 Time: 23:07 Bed 14 Private MD: Ehsan Mccoy Diagnosis: Epistaxis Presentation: 05/18 23:19 Chief complaint: Patient states: SUDDEN ONSET OF BILATERAL NOSE BLEED. PT STATES SHE br2 TAKEN ELIQUIS, DENIES INJURY. HAS BEEN BLEEDING FOR 2 HRS. C/O SINUS HEADACHE. Coronavirus screen: Client denies travel out of the [place] in the last 14 days. Ebola Screen: Patient denies exposure to infectious person. Initial Sepsis Screen: Does the patient meet any 2 criteria? No. Patient's initial sepsis screen is negative. Does the patient have a suspected source of infection? No. Patient's initial sepsis screen is negative. Risk Assessment: Do you want to hurt yourself or someone else? Patient reports no desire to harm self or others. Onset of symptoms was May 18, 2024 at 21:20. 23:19 Method Of Arrival: Ambulatory br2 23:19 Acuity: MOOSE 4 br2 Triage Assessment: 23:21 General: Appears uncomfortable, Behavior is calm, cooperative. Pain: Complains of pain br2 in forehead Pain currently is 3 out of 10 on a pain scale. EENT: Nares with bleeding noted. Historical: - Allergies: 23:21 Keflex; br2 23:21 Morphine; br2 23:21 PENICILLINS; br2 - PMHx: 23:21 Atrial fibrillation; Hypertensive disorder; Hypothyroidism; br2 - PSHx: 23:21 knee replacement; br2 - Immunization history:: Adult Immunizations up to date. - Infectious Disease History:: Denies. - Social history:: Smoking status: Patient denies any tobacco usage or history of. Patient uses alcohol, occasionally. Patient/guardian denies using street drugs. Screenin:37 [facility] ED Fall Risk Assessment (Adult) History of falling in the last 3 months, kj2 including since admission No falls in past 3 months (0 pts) Confusion or Disorientation No (0 pts) Intoxicated or Sedated No (0 pts) Impaired Gait No (0 pts) Mobility Assist Device Used No (0 pt) Altered Elimination No (0 pt) Score/Fall Risk Level 0 - 2 = Low Risk Maintained a safe environment, Hourly rounding (assess needs \T\ fall precautionary measures) done. Abuse screen: Denies threats or abuse. Denies injuries from another. Nutritional screening: No deficits noted. Tuberculosis screening: No symptoms or risk factors identified. Assessment: 23:36 General: Appears in no apparent distress. Behavior is calm, cooperative. Pain: kj2 Complains of pain in face and forehead Pain. Neuro: Level of Consciousness is awake, alert, obeys commands, Oriented to person, place, time, situation. Cardiovascular: Patient's skin is warm and dry. nose bleed. Respiratory: Airway is patent Respiratory effort is even, unlabored. GI: No signs and/or symptoms were reported involving the gastrointestinal system. : No signs and/or symptoms were reported regarding the genitourinary system. 05/19 00:55 Reassessment: Patient and/or family updated on plan of care and expected duration. Pain vc1 level reassessed. Patient is alert, oriented x 3, equal unlabored respirations, skin warm/dry/pink. Patient states symptoms have improved. 02:02 Reassessment: Patient appears in no apparent distress at this time. No changes from vc1 previously documented assessment. Patient and/or family updated on plan of care and expected duration. Pain level reassessed. Patient is alert, oriented x 3, equal unlabored respirations, skin warm/dry/pink. Vital Signs: 05/18 23:19 BP 179 / 85; Pulse 77; Resp 18; Temp 97.1(TE); Pulse Ox 99% on R/A; Weight 54.43 kg; br2 Height 4 ft. 11 in. ; Pain 3/10; 05/19 00:45 BP 161 / 74; Pulse 75; Resp 17; Pulse Ox 99% ; vc1 01:45 BP 131 / 57; Pulse 61; Resp 17; Pulse Ox 99% ; vc1 05/18 23:19 Body Mass Index 24.24 (54.43 kg, 149.86 cm) br2 05/18 23:19 Pain Scale: Adult br2 ED Course: 05/18 23:09 Patient arrived in ED. rg4 23:09 Ehsan Mccoy MD is Private Physician. rg4 23:12 Jose Raul Crouch MD is Attending Physician. abby 23:20 Belgica Beckford, RN is Primary Nurse. kj2 23:21 Triage completed. br2 23:21 Arm band placed on right wrist. br2 23:35 PT-INR Sent. kj2 23:35 Comprehensive Metabolic Panel Sent. kj2 23:35 CBC with Diff Sent. kj2 23:38 Patient has correct armband on for positive identification. Bed in low position. Call kj2 light in reach. Provided Education on: call light. 23:38 No provider procedures requiring assistance completed. kj2 05/19 00:00 Report given to Izabela Lanier,MARIELY. kj2 01:31 Ehsan Mccoy MD is Referral Physician. abby 01:31 Darline Davis MD is Referral Physician. [facility] 02:03 Patient did not have IV access during this emergency room visit. vc1 Administered Medications: 05/18 23:58 Not Given (Patient Refused): ns 0.9% 500 ml 500 ml IV at 1 bolus once; to be given as a kj2 bolus over 30 minutes 05/19 00:21 Drug: Stephane-Synephrine Intranasal [place] 0.5 % 2 sprays Intranasal once Route: Intranasal; vc1 Site: right nare; Medication: 02:03 VIS not applicable for this client. vc1 Outcome: 01:31 Discharge ordered by . [facility] 02:02 Discharged to home ambulatory, vc1 02:02 Condition: stable 02:02 Discharge instructions given to patient, Instructed on discharge instructions, follow up and referral plans. Demonstrated understanding of instructions, follow-up care, 02:03 Patient left the ED. vc1 Signatures: Jose Raul Crouch MD MD cha Garcia, Rubi rg4 Izabela Craig RN RN vc1 Gregoria Mccarty RN RN br2 Belgica Beckford, MARIELY RN kj2
[2024-05-19 02:08] VITALS: TEMP 97.1; O2SAT 99
[2024-05-19 02:10] VITALS: BP 131/57
== END 2024-05-19 02:03 | disposition home or self-care (01) ==
LOC: ER 23:07
DX: R04.0 Epistaxis (principal)
CPT/HCPCS: 36415; 80053; 85025; 85610; 99283